=== PATIENT | female | born 1950 | race Caucasian/White ===

== ENCOUNTER 2020-01-27 07:26 | Outpatient (CLI) | payer MEDICARE, SELFPAY ==
--- NOTE | ~2020-01-27 | US_ITS ---
US renal BI 01/27/2020 07:56 Procedure: Realtime transabdominal ultrasound of the kidneys and bladder. Indication: Renal cysts. Comparison: Ultrasound dated 12/22/2017 Findings: Renal echotexture is normal bilaterally without hydronephrosis, contour deforming mass or r enal calculus. There are multiple right renal cysts, largest measuring 3 cm maximum dimension. The ri ght kidney measures 10.6 cm and left kidney measures 10.9 cm. Bladder within normal limits. Impression: 1: Right renal cysts. Otherwise, unremarkable renal ultrasound. Reviewed, dictated and finalized at location B. Impression: 1: Right renal cysts. Otherwise, unremarkable renal ultrasound.
== END 2020-01-27 07:27 | disposition home or self-care (01) ==
PROVIDERS: PCP Family Medicine; Visit Provider Nurse Practitioner Family
DX: N28.1 Cyst of kidney, acquired (principal)
CPT/HCPCS: 76775

== ENCOUNTER 2020-03-27 01:55 | Outpatient (CLI) | payer MEDICARE, SELFPAY ==
[2020-03-27 21:22] LABS: SARS-CoV-2 RNA PCR Negative
== END 2020-03-27 01:56 | disposition home or self-care (01) ==
LOC: ANHCOVIDDT 01:58
PROVIDERS: PCP Family Medicine; Visit Provider Internal Medicine Gastroenterology
DX: Z01.818 Encounter for other preprocedural examination (principal); Z20.828 Contact with and (suspected) exposure to other viral communicable diseases
CPT/HCPCS: 87635; C9803; U0003

== ENCOUNTER → 2020-03-29 13:22 | Outpatient (CLI) | payer MEDICARE, SELFPAY ==
--- NOTE | ~2020-03-29 | MM_ITS ---
EXAMINATION: MM screening [facility] BI w miguelito HISTORY: Screening mammogram TECHNIQUE: Craniocaudal and mediolateral oblique 3-D tomosynthesis images were obtained and synthetic 2-D images were generated. CAD analysis was submitted and interpreted. COMPARISON: 04/12/2015, 06/16/2012 BREAST PARENCHYMAL COMPOSITION: There are scattered areas of fibroglandular density. FINDINGS: New skin calcifications are noted in the right breast. There is no evidence of suspicious m ass, calcification, or architectural distortion to suggest malignancy in either breast. There has bee n no suspicious interval change. IMPRESSION: 1. No mammographic evidence of malignancy. 2. Recommend routine screening mammography in one year. BI-RADS Category 2: Benign finding(s). Reviewed, dictated and finalized at location A. L AND DINING ROOM CASHIER
--- NOTE | ~2020-03-29 | DEXA_ITS ---
Bone Density Report Name: Zohreh Laughlin I Age: 69 Sex: Female Ethnicity: White Date of : 1950 Indication: postmenopausal osteoporosis; parental hip fracture; height loss; Referring Provider: Jc Dahl Study: Bone densitometry was performed. Exam Date: March 29, 2020 Accession number: [id number] Bone Density: Region BMD T-score Z-score Classification AP Spine (L1-L4) 0.735 -2.8 -0.7 Osteoporosis Femoral Neck (Left) 0.506 -3.1 -1.2 Osteoporosis Total Hip (Left) 0.699 -2.0 -0.4 Osteopenia Femoral Neck (Right) 0.553 -2.7 -0.8 Osteoporosis Total Hip (Right) 0.616 -2.7 -1.1 Osteoporosis Total Hip Mean 0.658 -2.4 -0.8 Osteopenia World Health Organization criteria for BMD impression classify patients as: Normal (T-score at or above -1.0), Osteopenia (T-score between -1.0 and -2.5), or Osteoporosis (T-score at or below -2.5). 10-year Fracture Risk: FRAX not reported because: Some T-score for Spine Total or Hip Total or Femoral Neck at or below -2.5 Previous Exams: Region Exam Age BMD T-score BMD Change BMD Change Date g/cm2 vs Baseline vs Previous AP Spine(L1-L4) 03/29/2020 69 0.735 -2.8 -0.015 -0.015 02/24/2014 63 0.750 -2.7 Total Hip(Left) 03/29/2020 69 0.699 -2.0 -0.020 -0.020 02/24/2014 63 0.719 -1.8 Total Hip(Right) 03/29/2020 69 0.616 -2.7 -0.008 -0.008 02/24/2014 63 0.623 -2.6 *Denotes significance at 95% confidence level, LSC for AP Spine = 0.022 g/cm2, LSC for Total Hip = 0.027 g/cm2 Clinical Information Provided by Patient: Parent has had a hip fracture Has used the following medications: Vitamin D, Calcium Patient maximum height was 62 Menopause Age: 46 No regular weight bearing exercise Drinks caffeinated beverages Onset of menses at age 11 Number of children 2 Impression: The patient has osteoporosis, based on the Left Femoral Neck T-score. The patient has risk factors, including: parental hip fracture. No significant bone loss was observed. Discussion: INCREASED RISK OF FRACTURE. BONE DENSITY IS UNDESIRABLY LOW AT ONE OR MORE SKELETAL SITES, CONSISTENT WITH POSTMENOPAUSAL OSTEOPOROSIS. This patient's lowest T-score meets the World Health Organization's (WHO) criteria for osteoporosis at one or more sites (T-score -2.5 or below). In untreated patients, the risk of osteoporotic fracture increases approximately two-fold for each 1.0 SD decrease in T-
== END ==
PROVIDERS: PCP Family Medicine; Visit Provider Nurse Practitioner Family
DX: Z12.31 Encounter for screening mammogram for malignant neoplasm of breast (principal); Z78.0 Asymptomatic menopausal state; M81.0 Age-related osteoporosis without current pathological fracture; M85.89 Other specified disorders of bone density and structure, multiple sites
CPT/HCPCS: 77063; 77067; 77080

== ENCOUNTER 2020-03-30 00:44 | Day surgery (SDC) | payer MEDICARE, SELFPAY ==
[2020-03-24 14:12] VITALS: BMI 24.1
[2020-03-30 13:30] VITALS: BP 103/65; PULSE 92; RESP 16; TEMP 37.1; O2SAT 98
[2020-03-30] MEDS: LACTATED RINGERS 1,000 ML 150 ML IV CONT (13:33)
--- NOTE | 2020-03-30 13:51 | WPDANESEPPF ---
Anes - Initial Pre Proc Eval Procedure: Operation Date: 03/30/20 14:45 Proposed Procedures p Screening Colonoscopy - Romeo Alcantara MD Date/Time: 03/30/20 13:51 Surgeon: Romeo Alcantara MD Pre Op Diagnosis: Neoplasm Screening Patient Data Age: 69 Gender: F Height: 5 ft 0.5 in Weight: 55.4 kg Last Vital Signs Temp 98.8 F 03/30/20 13:30 Pulse 92 03/30/20 13:30 Resp 16 03/30/20 13:30 BP 103/65 03/30/20 13:30 Pulse Ox 98 03/30/20 13:30 Allergies Allergy/AdvReac Type Severity Reaction Status Date / Time cyclobenzaprine Allergy Severe Other Verified 03/30/20 13:27 codeine Allergy Intermediate Gastrointestinal Verified 03/30/20 13:27 Upset gluten Allergy Intermediate Gastrointestinal Verified 03/30/20 13:27 Upset Home Medications Medication Instructions Recorded Confirmed Type cetirizine 10 mg tablet 10 mg PO DAILY 05/09/19 03/24/20 History ferrous sulfate 325 mg (65 mg 325 mg PO TID #90 tablet 03/13/20 03/24/20 Rx iron) tablet cholecalciferol (vitamin D3) 10 mcg PO DAILY 03/24/20 03/24/20 History [Vitamin D3] Patient hx anesthesia problems: none Family hx anesthesia problems: none PMFSH Past Medical History Medical History (Updated 03/30/20 @ 13:50 by Derrick Mane MD) Iron deficiency anemia Family History Family History Sibling Hypertension Family history of diabetes mellitus in first degree relative Family history of lymphoma Mother Family history of diabetes mellitus in first degree relative Social History Social History Smoking packs per day: 1 Smoking cigarettes per day: 20.0 Years smoked: 20 Smoking pack-years: 20.00 Smoking status: Former smoker Tobacco type: cigarettes Second hand tobacco smoke exposure: No Alcohol intake: current Substance use: never Substance use type: does not use Living arrangements: alone Spiritual care concerns: No Anes - Eval Final PreProcedure Day of Procedure 03/30/20 13:51 Patient weight: normal Heart: regular rate and rhythm Lungs: clear to auscultation Airway: Mallampati scale class II Neurological: alert and oriented Last oral intake: >/= 8 hours ASA classification: II Emergent: no Anesthetic plan: proceed Anesthesia type and monitoring: general GIVS and standard monitoring Informed Consent: The patient's anesthetic plan and its attendant risks and benefits were discussed with the patient/family/POA. Questions were solicited and answers provided to the satisfaction of the patient/family/POA.
--- NOTE | 2020-03-30 13:55 | PM.HPGS ---
History of Present Illness History of Present Illness Consent: Risks, benefits, and alternatives have been discussed and questions answered. Patient agrees to proceed with procedure. Chief complaint: Neoplasm Screening Narrative: Zohreh Laughlin is a 69 year old female here with anemia and also + cologuard, last colonoscopy more than 10 years ago. Review of Systems Constitutional: Constitutional: Denies headache(s) and Denies weakness Eyes: Eyes: Denies blurry vision ENT: Reports Normal hearing present, Denies headache(s) and Denies neck pain Cardiovascular: Cardiovascular: Denies chest pain and Denies dyspnea Respiratory: Respiratory: Denies dyspnea Gastrointestinal: Gastrointestinal: Reports no additional gastrointestinal complaints Genitourinary: Genitourinary: Denies dysuria Musculoskeletal: Musculoskeletal: Denies neck pain Integumentary/Breasts: Skin/Breast: Denies dry skin Neurologic: Reports Normal hearing present, Denies headache(s) and Denies weakness Psychiatric: Psychiatric: Denies anxiety Endocrine: Endocrine: Denies change in body appearance Hematologic/Lymphatic: Hematologic/Lymphatic: Denies easy bleeding Allergic/Immunologic: Allergic/Immunologic: Denies urticaria PMFSH Past Medical History Medical History (Updated 03/30/20 @ 13:56 by Romeo Alcantara MD) Celiac disease Iron deficiency anemia Positive colorectal cancer screening using Cologuard test Family History Family History Sibling Hypertension Family history of diabetes mellitus in first degree relative Family history of lymphoma Mother Family history of diabetes mellitus in first degree relative Social History Social History Smoking packs per day: 1 Smoking cigarettes per day: 20.0 Years smoked: 20 Smoking pack-years: 20.00 Smoking status: Former smoker Tobacco type: cigarettes Second hand tobacco smoke exposure: No Alcohol intake: current Substance use: never Substance use type: does not use Living arrangements: alone Spiritual care concerns: No Meds Home Medications and Allergies Home Medications Medication Instructions Recorded Confirmed Type cetirizine 10 mg tablet 10 mg PO DAILY 05/09/19 03/24/20 History ferrous sulfate 325 mg (65 mg 325 mg PO TID #90 tablet 03/13/20 03/24/20 Rx iron) tablet cholecalciferol (vitamin D3) 10 mcg PO DAILY 03/24/20 03/24/20 History [Vitamin D3] Allergies Allergy/AdvReac Type Severity Reaction Status Date / Time cyclobenzaprine Allergy Severe Other Verified 03/30/20 13:27 codeine Allergy Intermediate Gastrointestinal Verified 03/30/20 13:27 Upset gluten Allergy Intermediate Gastrointestinal Verified 03/30/20 13:27 Upset Vital Signs Vital Signs - 24 hr 03/30/20 13:30 Temperature 98.8 F Pulse Rate 92 Respiratory Rate 16 Blood Pressure 103/65 Pulse Oximetry 98 Exam Const: General: comfortable and no acute distress HENMT: General nose exam: Normal nares present Eyes: General: appearance normal, both eyes and all related structures Neck: Neck: no JVD Resp: Auscultation: clear to auscultation bilaterally Cardio: Rate: regular rate Rhythm: regular rhythm GI: Inspection: non-distended GI Palp: Yes Soft to palpation Skin: General skin exam: normal color Neuro: General: gait normal Speech: normal speech Extrem: General: normal to inspection Psych: Mental Status: mental status grossly normal Assessment and Plan Assessment and plan (1) Iron deficiency anemia: Code(s): D50.9 - Iron deficiency anemia, unspecified Status: Acute (2) Positive colorectal cancer screening using Cologuard test: Code(s): R19.5 - Other fecal abnormalities Status: Acute Assessment and Plan: proceed with colonoscopy (3) Celiac disease: Code(s): K90.0 - Celiac disease
[2020-03-30 14:18] VITALS: BP 84/46; PULSE 81; RESP 16; O2SAT 99
[2020-03-30 14:28] VITALS: BP 88/52; PULSE 84; RESP 18; O2SAT 99
[2020-03-30 14:38] VITALS: BP 109/65; PULSE 77; RESP 21; O2SAT 97
[2020-03-30 14:48] VITALS: BP 115/71; PULSE 75; RESP 17; O2SAT 100
== END 2020-03-30 14:52 | disposition home or self-care (01) ==
PROVIDERS: PCP Family Medicine; Visit Provider Internal Medicine Gastroenterology
PROC: 0DJD8ZZ Inspection of Lower Intestinal Tract, Via Natural or Artificial Opening Endoscopic (ICD-10-PCS; CPT 45378; principal; 2020-03-30 14:45)
DX: D50.9 Iron deficiency anemia, unspecified (principal); R19.5 Other fecal abnormalities; D12.2 Benign neoplasm of ascending colon; D12.4 Benign neoplasm of descending colon; D12.8 Benign neoplasm of rectum; K57.30 Diverticulosis of large intestine without perforation or abscess without bleeding; K90.0 Celiac disease; Z87.891 Personal history of nicotine dependence
CPT/HCPCS: 45385; 88305; J2704; J7120

== ENCOUNTER 2020-05-26 16:37 | Outpatient (CLI) | payer MEDICARE, SELFPAY ==
--- NOTE | ~2020-05-26 | US_ITS ---
EXAMINATION: US abdomen limited DATE: 05/26/2020 17:21 INDICATION: Abdominal pain TECHNIQUE: Multiple grayscale and Doppler ultrasound images of the abdomen were obtained. COMPARISON: None FINDINGS: Pancreas is normal. Liver has normal echogenicity and contour, with a smooth surface. No liver lesion identified. No intrahepatic biliary duct dilation suspected. Portal venous flow was seen in the hepa topetal, normal direction and has normal Doppler waveform. Multiple small echogenic and shadowing gal lstones in the dependent aspect of the otherwise normal-appearing gallbladder which is not dilated wi th no evident wall thickening. Common bile duct measures 4 mm diameter which is normal. Sonographic M urphy sign was reported as negative by the home health outreach coordinator. The right kidney measures 11.3 x 4.1 x 4.3 cm and demonstrates normal echogenicity. 2.7 cm anechoic cyst at the upper pole of the right kidney. No hydronephrosis. IMPRESSION: 1. Cholelithiasis without findings of acute cholecystitis. Reviewed, dictated and finalized at location A. INSTRUCTOR
--- NOTE | 2020-05-26 16:44 | ECG_ITS ---
Measurements Intervals [place] Rate: 65 P: 62 WV: 164 QRS: 40 QRSD: 77 T: 49 QT: 383 QTc: 398 Interpretive Statements SINUS RHYTHM RSR' IN V1 OR V2, PROBABLY NORMAL VARIANT BASELINE ARTIFACT- V1 NORMAL ECG Electronically Signed On 05-26-2020 19:06:59 ANALYTICAL TECHNICIAN by Jacobo Rivero D.O.
[2020-05-26 18:00] LABS: Basophils Percent Auto 0.6 % (0.2-1.2); Eosinophils Absolute Auto 0.1 K/mm3 (0-0.3); Eosinophils Percent Auto 2.8 % (0-4.4); Hematocrit 39.2 % (37.0-47.0); Hemoglobin 12.6 g/dL (12.0-15.0); Immature Granulocyte Absolute 0.01 K/mm3 (0.00-0.031); Immature Granulocyte Percent A 0.2 % (0-0.5); Lymphocytes Absolute Auto 1.95 K/mm3 (0.9-3.2); Lymphocytes Percent Auto 39.5 % (18.3-44.2); Mean Corpuscular HGB Conc 32.1 g/dl (32-36); Mean Corpuscular Hemoglobin 26.8 pg (26-34); Mean Corpuscular Volume 83.4 fl (80-100); Mean Platelet Volume 9.7 fl (7.4-10.4); Monocytes Absolute Auto 0.6 K/mm3 (0.1-0.6); Monocytes Percent Auto 12.8 % (2.6-8.5); Neutrophils Absolute Auto 2.2 K/mm3 (1.3-6.7); Neutrophils Percent Auto 44.1 % (45.5-73.1); Platelet Count Result 350 k/mm3 (150-375); Red Cell Distribution Width 21.8 % (11.5-14.5); White Blood Count 4.9 K/mm3 (4.5-10.0)
[2020-05-26 18:16] LABS: Alanine Aminotransferase 27 U/L (4-35); Albumin Level 4.4 g/dL (3.5-5.1); Alkaline Phosphatase 83 U/L (38-126); Amylase 68 U/L (30-110); Anion Gap 3 mmol/L (8-16); Aspartate Amino Transferase 32 U/L (14-36); Bilirubin,Total 0.5 mg/dL (0.2-1.3); Blood Urea Nitrogen 11 mg/dL (7-17); Calcium 9.4 mg/dL (8.4-10.2); Carbon Dioxide 32 mmol/L (22-30); Chloride 104 mmol/L (98-107); Estimated Glomerular Filt Rate > 60; Glucose 100 mg/dL (65-105); Lipase 80 U/L (23-300); Potassium 3.7 mmol/L (3.4-5.0); Sodium 139 mmol/L (137-145)
== END 2020-05-26 16:38 | disposition home or self-care (01) ==
LOC: ANHIMG 16:39
PROVIDERS: PCP Family Medicine; Visit Provider Nurse Practitioner Family
DX: K80.10 Calculus of gallbladder with chronic cholecystitis without obstruction (principal); R10.13 Epigastric pain; H69.80 Other specified disorders of Eustachian tube, unspecified ear
CPT/HCPCS: 36415; 76705; 80053; 82150; 83690; 85025; 93005

== ENCOUNTER 2020-06-01 07:09 | Outpatient (CLI) | payer MEDICARE, SELFPAY ==
--- NOTE | ~2020-06-01 | NM_ITS ---
EXAMINATION: NM hepatobiliary w pharm DATE: 06/01/2020 11:20 INDICATION: Cholelithiasis COMPARISON: None. TECHNIQUE: 5.2 mCi Tc-99m mebrofenin (Choletec) was administered intravenously. Scintigraphic images of the abdomen were obtained for one hour. 0.1 mcg sincalide (Kinevac) was administered by slow intr avenous infusion, and imaging was continued for 30 minutes. Gallbladder ejection fraction was calcula christiano by the technologist. FINDINGS: There is normal clearance of radiotracer from the blood pool. There is homogeneous tracer uptake by t he liver. Activity progresses to the gallbladder and bowel. The gallbladder ejection fraction (GBEF) is 6% (normal 10-90%, but most patient with gallbladder dysfunction have GBEF < 35% which does overl ap with the normal range). IMPRESSION: 1. Gallbladder ejection fraction of 6% is below the limits of normal consistent with gallbladder dys function or chronic cholecystitis in the appropriate clinical setting. Reviewed, dictated and finalized at location A. R COMMISSIONER IMPRESSION: 1. Gallbladder ejection fraction of 6% is below the limits of normal consisten t with gallbladder dysfunction or chronic cholecystitis in the appropriate clin ical setting.
== END 2020-06-01 07:10 | disposition home or self-care (01) ==
PROVIDERS: Family Provider Family Medicine; PCP Family Medicine; Visit Provider Nurse Practitioner Family
DX: K80.20 Calculus of gallbladder without cholecystitis without obstruction (principal)
CPT/HCPCS: 78227; A9537; J2805

== ENCOUNTER → 2020-06-02 12:37 | Outpatient (CLI) | payer MEDICARE, SELFPAY ==
[2020-06-02 17:38] LABS: SARS-CoV-2 RNA PCR Negative
== END ==
PROVIDERS: Family Provider Family Medicine; PCP Family Medicine; Visit Provider Surgery
DX: Z01.812 Encounter for preprocedural laboratory examination (principal); Z20.822 Contact with and (suspected) exposure to COVID-19
CPT/HCPCS: C9803; U0003; U0005

== ENCOUNTER 2020-06-05 01:40 | Day surgery (SDC) | payer MEDICARE, SELFPAY ==
[2020-06-02 11:13] VITALS: BMI 25.0
[2020-06-05] VITALS (8 sets, daily range): BP systolic 111–138; BP diastolic 60–73; PULSE 74–108; RESP 14–20; TEMP 36.5–36.6; O2SAT 96–100
[2020-06-05] MEDS: LACTATED RINGERS 1,000 ML 30 ML IV CONT ×2 (11:34→13:17)
[2020-06-05] MEDS: ACETAMINOPHEN 500 MG TABLET 1000 MG PO (11:35)
[2020-06-05] MEDS: KETOROLAC 15 MG/ML VIAL (*BKC) IV PUSH (11:35)
--- NOTE | 2020-06-05 11:44 | WPDANESEPPF ---
Anes - Initial Pre Proc Eval Procedure: Operation Date: 06/05/20 13:00 Proposed Procedures p Laparoscopic Cholecystectomy, Possible Open - Reddy Ayala DO Date/Time: 06/05/20 11:44 Surgeon: Reddy Ayala DO Pre Op Diagnosis: Symptomatic Cholelithiasis Patient Data Age: 70 Gender: F Height: 5 ft Weight: 55.9 kg Last Vital Signs Temp 97.7 F 06/05/20 11:05 Pulse 74 06/05/20 11:05 Resp 16 06/05/20 11:05 BP 138/60 06/05/20 11:05 Pulse Ox 100 06/05/20 11:05 Allergies Allergy/AdvReac Type Severity Reaction Status Date / Time cyclobenzaprine Allergy Severe Other Verified 06/05/20 10:55 gluten Allergy Intermediate Gastrointestinal Verified 06/05/20 10:55 Upset codeine AdvReac Intermediate STOMACH Verified 06/05/20 10:55 PAIN/CRAMPING Home Medications Medication Instructions Recorded Confirmed Type cetirizine 10 mg tablet 10 mg PO DAILY 05/09/19 06/05/20 History cholecalciferol (vitamin D3) 10 mcg PO DAILY 03/24/20 06/05/20 History [Vitamin D3] Patient hx anesthesia problems: none Family hx anesthesia problems: none PMFSH Past Medical History Medical History Acute right hip pain Acute right-sided low back pain with left-sided sciatica Age-related osteoporosis without current pathological fracture BMI 25.0-25.9,adult Body mass index [BMI] 28.0-28.9, adult (08/05/16) Celiac disease Closed fracture dislocation of finger with routine healing Closed nondisplaced fracture of middle phalanx of left index finger Cyst of right kidney Dietary counseling and surveillance (01/28/18) Dislocation of metacarpophalangeal joint of left middle finger, initial encounter Elevated glucose Head injury without fracture of skull Iron deficiency anemia Measles, mumps, rubella (MMR) vaccination status unknown Meniere's disease, bilateral Mixed hyperlipidemia Needs flu shot Non-compliant behavior Other spondylosis with radiculopathy, lumbar region Pain in finger of left hand Pain in left hand Positive colorectal cancer screening using Cologuard test Routine physical examination Screening for breast cancer Screening for colon cancer Vitamin D deficiency, unspecified Surgical History Surgical History History of ear surgery shunt, right ear, [facility] Family History Family History Sibling Hypertension Family history of diabetes mellitus in first degree relative Family history of lymphoma Mother Family history of diabetes mellitus in first degree relative Father No problems noted. Social History Social History Smoking packs per day: 1 Smoking cigarettes per day: 20.0 Years smoked: 23 Smoking pack-years: 23.00 Smoking status: Former smoker Tobacco type: cigarettes Second hand tobacco smoke exposure: No Smoking end date: 05/12/94 Alcohol intake: never Substance use: never Substance use type: does not use Living arrangements: alone Additional occupation/education comments: teacher Gender identity (if verbalized by the patient): Female Spiritual care concerns: No Anes - Eval Final PreProcedure Day of Procedure 06/05/20 11:44 Patient weight: normal Heart: regular rate and rhythm Lungs: clear to auscultation Airway: Mallampati scale class II Neurological: alert and oriented Last oral intake: >/= 8 hours ASA classification: II Emergent: no Anesthetic plan: proceed Anesthesia type and monitoring: general ETT and standard monitoring Informed Consent: The patient's anesthetic plan and its attendant risks and benefits were discussed with the patient/family/POA. Questions were solicited and answers provided to the satisfaction of the patient/family/POA.
--- NOTE | 2020-06-05 12:04 | WPDHPUPDATE1 ---
History and Physical Update Update Date/Time: 06/05/20 12:04 History and Physical has been reviewed, including an updated exam of the patient. There are NO changes in the patient's condition. Risks, benefits, and alternatives have been discussed and questions answered. Patient agrees to proceed with procedure.
[2020-06-05] MEDS: ceFAZolin 2 GM/D5W 50 ML 2 GM/50 ML BAG IVPB (12:20)
[2020-06-05] MEDS: BUPIVACAINE/EPINEPHRINE 0.5% 10 ML VIAL 30 ML INFILTRATE (12:49)
--- NOTE | 2020-06-05 13:19 | PM.PROC ---
Procedure Note - Detailed Date of procedure: 06/05/20 Pre-op diagnosis: Symptomatic Cholelithiasis Post-op diagnosis: same Procedure performed: Laparoscopic Cholecystectomy Description of procedure: Procedure as well as risks, benefits, and alternatives were discussed with patient. Written consent was obtained and placed in chart prior to procedure. The patient was brought back to surgical suite. Patient was placed in supine position on operating table. Time-out was done to confirm patient and procedure. Patient was then intubated by the anesthesia department. Abdomen was prepped and draped in sterile fashion using chlorhexidine prep. 0.5% bupivacaine with epinephrine was infiltrated at each site of incision. An 11 millimeter vertical incision was made at the inferior portion of the umbilicus using a 15 blade scalpel. Blunt dissection was carried down to the linea alba. The linea alba was then incised using a 15 blade scalpel. The peritoneum was then bluntly entered. An 11 millimeter trocar was inserted and cabon dioxied insuflation was used to create a pneumoperitoneum. The camera was inserted and the abdomen was inspected. The patient was placed in reverse Trendelenberg position and rotated slightly to the left. A 5 millimeter incision was made in the epigastric region, and a 5 millimeter trocar was inserted under direct visualization. Two 5 millimeter incisions were made in the right upper quadrant, and two 5 millimeter trocars were inserted under direct visualization. The gallbladder was identified and grasped at the fundus and retracted superiorly. It was then grasped at the infundibulum retracted laterally. Careful dissection around the neck of the gallbladder was performed using blunt dissection with a [place] grasper and hook electrocautery. The cystic duct was identified, and a window was created behind it. The cystic artery was also identified and a window was created behind it. The critical view of safety was identified, visualizing the cystic duct running directly into the neck of the gallbladder, and the cystic artery running directly into the wall of the gallbladder. A 5 millimeter clip drywall finisher was then used to place 2 clips proximally and 1 clip distally on both the cystic duct and cystic artery. They were then both transected using endoscopic scissors. Once safely away from the marielos hepatitis, the gallbladder was dissected free from the liver bed using hook electrocautery. Hemostasis was achieved along the way. The gallbladder was removed completely and then removed through the umbilical port. The liver bed was then inspected. Hemostasis appeared adequate, and our clips appeared secure. The area was gently irrigated with sterile saline. No other abnormalities were seen. The patient was flattened out in bed, and 1 final inspection was made around the abdominal cavity. The ports were then removed under direct visualization, the camera was removed, and the pneumoperitoneum was released. The fascia of the umbilical incision was approximated using an 0 Vicryl [id number] suture. The skin of the incisions was approximated using 4-0 Monocryl subcuticular sutures. Exofin glue was applied on top. The patient was then awakened from anesthesia, extubated, and transferred to recovery. Anesthesia: GETA and local (0.5% bupivicaine with epinephrine) Surgeon: Reddy Ayala DO Estimated blood loss (mL): 5 Pathology: yes Complications: No immediate complications Condition: stable Disposition: same day Findings: This is a 70-year-old woman who presented with intermittent episodes of epigastric abdominal pain for the past month. She states that she has had several episodes since this 1st started. She underwent a gallbladder ultrasound which showed evidence of cholelithiasis but no evidence of acute cholecystitis. She also had a gallbladder HIDA scan which showed a gallbladder ejection fraction of 6%. Discussions were made with the
== END 2020-06-05 15:02 | disposition home or self-care (01) ==
PROVIDERS: Family Provider Family Medicine; PCP Family Medicine; Visit Provider Surgery
PROC: 0FT44ZZ Resection of Gallbladder, Percutaneous Endoscopic Approach (ICD-10-PCS; CPT 47562; principal; 2020-06-05 13:00)
DX: K80.10 Calculus of gallbladder with chronic cholecystitis without obstruction (principal); M81.0 Age-related osteoporosis without current pathological fracture; K90.0 Celiac disease; D50.9 Iron deficiency anemia, unspecified; H81.02 Meniere's disease, left ear; E78.2 Mixed hyperlipidemia; E55.9 Vitamin D deficiency, unspecified; M47.26 Other spondylosis with radiculopathy, lumbar region; Z87.891 Personal history of nicotine dependence
CPT/HCPCS: 47562; 36415; 86850; 86900; 86901; 88304; A9270; J0330; J0690; J1100; J1885; J2250; J2405; J2704; J3010; J7030; J7120

== ENCOUNTER 2020-12-12 07:00 | Outpatient (CLI) | payer MEDICARE, SELFPAY ==
--- NOTE | ~2020-12-12 | XR_ITS ---
XR chest 2V DATE: 12/12/2020 07:19 INDICATION: Increasing shortness of breath and fatigue. Past history of smoking. TECHNIQUE: PA and lateral views COMPARISON: None FINDINGS: Heart size is normal. Aortic arch calcification and calcification of the descending thoraci c and abdominal aorta. Status post cholecystectomy. No hilar or mediastinal enlargement. Bilateral hyperinflation, suggesting COPD. No pulmonary infiltrate or consolidation, pleural effusion or pulmonary vascular congestion or pneumo thorax. Mild levoscoliosis of the thoracic spine. Diffuse osteopenia. IMPRESSION: Bilateral hyperinflation suggesting COPD No active cardiopulmonary disease Reviewed, dictated and finalized at location B.
== END 2020-12-12 07:01 | disposition home or self-care (01) ==
PROVIDERS: PCP Family Medicine; Visit Provider Nurse Practitioner Family
DX: R25.2 Cramp and spasm (principal); R53.83 Other fatigue; R06.02 Shortness of breath; R91.8 Other nonspecific abnormal finding of lung field
CPT/HCPCS: 71046

== ENCOUNTER 2020-12-13 11:10 | Inpatient (IN) | payer MEDICARE, SELFPAY ==
[2020-12-13] VITALS (16 sets, daily range): BP systolic 111–146; BP diastolic 59–79; PULSE 74–92; RESP 13–21; TEMP 35.4–37.1; O2SAT 98–100
--- NOTE | ~2020-12-13 | XR_ITS ---
EXAMINATION: XR sm bowel follow through DATE: 12/15/2020 16:59 INDICATION: Iron deficiency anemia. Celiac disease. TECHNIQUE: Oral contrast was administered, and a time course of radiographs of the abdomen was obtain ed. Fluoroscopy of the small bowel was performed. Fluoroscopy exposure time was 0.3 minutes. The tota l number of images was 11. COMPARISON: None. FINDINGS: There are no dilated loops of bowel. There is no mass or stricture. Transit time from the stomach to proximal colon was approximately 30 minutes. The terminal ileum is not well visualized. IMPRESSION: 1. No etiology for anemia. Reviewed, dictated and finalized at location A. IMPRESSION: 1. No etiology for anemia.
[2020-12-13 11:44] LABS: Basophils Percent Auto 0.4 % (0.2-1.2); Eosinophils Absolute Auto 0.1 K/mm3 (0-0.3); Eosinophils Percent Auto 2.1 % (0-4.4); Immature Granulocyte Absolute 0.02 K/mm3 (0.00-0.031); Immature Granulocyte Percent A 0.4 % (0-0.5); Lymphocytes Absolute Auto 1.11 K/mm3 (0.9-3.2); Lymphocytes Percent Auto 23.4 % (18.3-44.2); Mean Corpuscular HGB Conc 26.8 g/dl (32-36); Mean Corpuscular Hemoglobin 18.2 pg (26-34); Mean Corpuscular Volume 67.8 fl (80-100); Mean Platelet Volume 8.8 fl (7.4-10.4); Monocytes Absolute Auto 0.5 K/mm3 (0.1-0.6); Monocytes Percent Auto 10.8 % (2.6-8.5); Neutrophils Percent Auto 62.9 % (45.5-73.1); Platelet Count Result 474 k/mm3 (150-375); Red Blood Count 2.86 M/mm3 (4.2-5.4); Red Cell Distribution Width 18.8 % (11.5-14.5); White Blood Count 4.7 K/mm3 (4.5-10.0)
[2020-12-13 11:53] LABS: Alanine Aminotransferase 13 U/L (4-35); Albumin Level 4.2 g/dL (3.5-5.1); Alkaline Phosphatase 80 U/L (38-126); Anion Gap 7 mmol/L (8-16); Aspartate Amino Transferase 21 U/L (14-36); Bilirubin,Total 0.4 mg/dL (0.2-1.3); Blood Urea Nitrogen 7 mg/dL (7-17); Calcium 8.9 mg/dL (8.4-10.2); Carbon Dioxide 23 mmol/L (22-30); Chloride 103 mmol/L (98-107); Estimated Glomerular Filt Rate > 60; Glucose 110 mg/dL (65-110); Potassium 3.9 mmol/L (3.4-5.0); Sodium 133 mmol/L (137-145)
[2020-12-13 11:55] LABS: Partial Thromboplastin Time 27.6 SECONDS (22.3-36.8)
[2020-12-13 12:01] LABS: Hemoglobin 5.2 g/dL (12.0-15.0)
[2020-12-13 12:02] LABS: Hematocrit 19.4 % (37.0-47.0)
--- NOTE | 2020-12-13 12:16 | ECG_ITS ---
Measurements Intervals [place] Rate: 80 P: 59 NM: 164 QRS: 28 QRSD: 72 T: 46 QT: 371 QTc: 428 Interpretive Statements SINUS RHYTHM RSR' IN V1 OR V2, PROBABLY NORMAL VARIANT BASELINE ARTIFACT- I, II, III, AVR, AVF, V3-V6 BORDERLINE ECG Electronically Signed On 12-13-2020 12:56:17 CDT by Jacobo Rivero D.O.
--- NOTE | 2020-12-13 12:40 | ED.GENADULT ---
HPI - General Adult General Chief complaint: Recheck/Abnormal Lab/Rx Stated complaint: need transfusion Time Seen by Provider: 12/13/20 12:08 History of Present Illness HPI narrative: Patient referred from primary care physician for low blood levels. Patient reports she has been feeling weak over the past couple days with increased shortness of breath with physical activity. She had routine blood drawn yesterday the results returned today and she had a low H&H and is referred to the ER for further evaluation. Patient reports history of anemia of unclear etiology. Reports he has a very restricted diet due to gluten allergies she denies any melena or blood in stool. Denies any fevers, cough, focal areas of pain Related Data Home Medications Medication Instructions Recorded Confirmed cyclosporine [Restasis] 1 drp EACH EYE BID 12/13/20 12/13/20 Allergies Allergy/AdvReac Type Severity Reaction Status Date / Time cyclobenzaprine Allergy Severe Other Verified 12/13/20 12:16 gluten Allergy Intermediate Gastrointestinal Verified 12/13/20 12:16 Upset codeine AdvReac Intermediate STOMACH Verified 12/13/20 12:16 PAIN/CRAMPING Review of Systems Review of Systems: CONSTITUTIONAL: Denies fever, chills, or sweats. EYES: Denies visual changes, redness, or discharge. ENT: Denies rhinorrhea, congestion, sore throat, or otalgia. CARDIOVASCULAR: Denies chest pain, palpitations, or edema. RESPIRATORY: Denies cough or dyspnea. GASTROINTESTINAL: Denies abdominal pain, nausea, vomiting, or diarrhea. GENITOURINARY: Denies dysuria or hematuria. SKIN: Denies rash or itching. MUSCULOSKELETAL: Denies back pain, joint pain, or myalgia. NEUROLOGIC: Denies headache, numbness, dizziness, or focal weakness. PSYCHIATRIC: Denies anxiety or depression. All systems reviewed & are unremarkable except as noted in HPI and below [facility] Past Medical History Medical History (Updated 12/13/20 @ 18:03 by Mindy Riggins DO) Acute right hip pain Acute right-sided low back pain with left-sided sciatica Adenomatous colon polyp (~03/2020) Age-related osteoporosis without current pathological fracture BMI 25.0-25.9,adult Celiac disease Cyst of right kidney Iron deficiency anemia Meniere's disease, bilateral Mixed hyperlipidemia Other spondylosis with radiculopathy, lumbar region Vitamin D deficiency, unspecified Surgical History Surgical History (Updated 12/13/20 @ 18:03 by Mindy Riggins DO) History of colonoscopy with polypectomy (~03/2020) History of ear surgery shunt, right ear, 1997 [facility] laparoscopic cholecystectomy 06/05/20 Family History Family History Sibling Hypertension Family history of diabetes mellitus in first degree relative Family history of lymphoma Mother Family history of diabetes mellitus in first degree relative Father No problems noted. Social History Social History Smoking packs per day: 1 Smoking cigarettes per day: 20.0 Years smoked: 23 Smoking pack-years: 23.00 Tobacco type: cigarettes Second hand tobacco smoke exposure: No Smoking end date: 05/12/94 Alcohol intake: never Substance use: never Substance use type: does not use Additional occupation/education comments: teacher Gender identity (if verbalized by the patient): Female Spiritual care concerns: No Exam Narrative: GENERAL: Well-appearing, well-nourished, and in no acute distress. HEAD: Normocephalic, atraumatic. EYES: PERRLA and EOMI. ENT: Nares clear, no rhinorrhea or epistaxis. Mucous membranes moist. NECK: Supple. No masses. No JVD CHEST: Clear to auscultation. No respiratory distress. No wheezes rales or rhonchi HEART: Regular rate and rhythm. No murmur heard. Normal peripheral pulses. ABDOMEN: Soft, nontender, nondistended, normal active bowel sounds. RECT
[2020-12-13 12:53] LABS: Troponin I < 0.012 ng/mL (0.000-0.034)
[2020-12-13 13:04] LABS: Iron 11 ug/dL (37-170); Lactate Dehydrogenase 391 U/L (313-618)
[2020-12-13 13:12] LABS: Transferrin 356 mg/dL (206-381)
[2020-12-13 13:15] LABS: Percent Iron Saturation 2 % (20-50)
[2020-12-13 13:40] LABS: Ferritin 3.23 ng/mL (11.1-264)
[2020-12-13] MEDS: TUBING, BLOOD SET 1 EACH XX (14:52)
[2020-12-13] MEDS: SODIUM CHLORIDE 0.9% IV 1,000 ML 125 ML IV CONT (14:52)
--- NOTE | 2020-12-13 16:10 | ADMGEN ---
This patient, Zohreh James, was admitted to Medical Room 340-01. Patient/family oriented to hospital policies and general routines including ID bracelet, bed and alarms, visiting hours, pain management, procedures, bathroom and other care routines, personal items, smoking policy, room service/diet, and visiting hours. Information on how to activate the Rapid Response Team has been discussed. Patient/Family are encouraged to report perceived risks to care and to ask questions if they do not understand what they are told or what they should do.
--- NOTE | 2020-12-13 16:43 | WPDGICN ---
Assessment and Plan Assessment and plan (1) Acute blood loss anemia: Code(s): D62 - Acute posthemorrhagic anemia Status: Acute Assessment and Plan: denies overt gib, colonoscopy few months ago without signs of bleeding EGD to assess if ulcers, gastritis. Also will get duodenal bx to check disease activity from celiac. If work up negative then she will need capsule endoscopy as outpatient (2) Celiac disease: Code(s): K90.0 - Celiac disease Status: Acute Assessment and Plan: she says that has been on gluten free diet (3) Shortness of breath: Code(s): R06.02 - Shortness of breath Status: Acute Assessment and Plan: from symptomatic anemia (4) Leg cramping: Code(s): R25.2 - Cramp and spasm Status: Acute (5) Adenomatous colon polyp: Code(s): D12.6 - Benign neoplasm of colon, unspecified Status: Acute Assessment and Plan: colonoscopy last year, due 2024 GI Consult Note Consult date/time: 12/13/20 16:43 Reason for consult: ELEN, celiac disease HPI: Zohreh James is a 70 year old female who I met her last year when she presented for outpatient colonoscopy because anemia and positive cologuard. Colonoscopy with TA polyps, mild diverticulosis but no findings to explain anemia (hb ~ 10). She has not had a recent EGD and was diagnosed with celiac disease [place] [address] Becker after she had diarrhea. She says that is on gluten free diet and she tries to be careful about it, lately make some more changes in her diet after she went to see a doctor because vertigo. Last several days with dyspnea on exertion and more fatigue, finally she went to see her PCP couple days ago and hgb 5, she was told to come to ER and admitted. She never had GIB, denies previous blood transfusion. She does not take meds in regular basis (only eye drops), only tylenol or advil no more often than once a month. She is getting blood now. Review of Systems Constitutional: Constitutional: Reports fatigue Eyes: Eyes: Denies blurry vision ENT: Comments: chronic hearing loss Cardiovascular: Cardiovascular: Denies leg edema Respiratory: Respiratory: Reports dyspnea on exertion Gastrointestinal: Gastrointestinal: Denies abdominal pain, Denies nausea and Denies vomiting Genitourinary: Genitourinary: Denies hematuria Musculoskeletal: Musculoskeletal: Denies neck pain Integumentary/Breasts: Skin/Breast: Denies dry skin Neurologic: Denies headache(s) Psychiatric: Psychiatric: Denies anxiety [facility] Past Medical History Medical History (Updated 12/13/20 @ 16:50 by Romeo Alcantara MD) Acute blood loss anemia Acute right hip pain Acute right-sided low back pain with left-sided sciatica Adenomatous colon polyp Age-related osteoporosis without current pathological fracture BMI 24.0-24.9, adult BMI 25.0-25.9,adult Body mass index [BMI] 28.0-28.9, adult (08/05/16) Celiac disease Closed fracture dislocation of finger with routine healing Closed nondisplaced fracture of middle phalanx of left index finger Cyst of right kidney Dietary counseling and surveillance (01/28/18) Dislocation of metacarpophalangeal joint of left middle finger, initial encounter Elevated glucose Head injury without fracture of skull Iron deficiency anemia Measles, mumps, rubella (MMR) vaccination status unknown Meniere's disease, bilateral Mixed hyperlipidemia Needs flu shot Non-compliant behavior Other spondylosis with radiculopathy, lumbar region Pain in finger of left hand Pain in left hand Positive colorectal cancer screening using Cologuard test Routine physical examination Screening for breast cancer Screening for colon cancer Vitamin D deficiency, unspecified Surgical History Surgical History History of ear surgery shunt, right ear, 1997 [facility] laparoscopic cholecystectomy 06/05/20 Family History Family His
--- NOTE | 2020-12-13 17:58 | PM.IMHP ---
H&P: HPI History of Present Illness Date/Time: 12/13/20 17:58 Chief Complaint: ?I need a transfusion? Narrative: 70-year-old female with a past medical history of celiac disease, prior anemia, and recent colonoscopy with polypectomy who presented to the ER after outpatient labs demonstrated low hemoglobin. The patient reports that for the last couple of weeks that she had noticed that she felt more lazy. She does did not have the energy to do her usual activities. Over the last week she has noticed dyspnea on exertion. She at feels as if she cannot catch a deep breath. She denies any chest pain, palpitations or orthopnea. She has not received lower extremity swelling. She went to her primary care physician for the symptoms and had outpatient labs performed which demonstrated significant anemia. The patient's hemoglobin back in May of 2020 was 12.6 but she has had a history of anemia in the past with hemoglobins ranging between 9 and 10. She has never needed blood transfusion. She had an outpatient colonoscopy March 2020 due to a positive Cologuard that was relatively unremarkable. His she denies any gross GI bleeding. In the ER her Hemoccult was weakly positive for occult blood. His she has noticed over the last couple of weeks some epigastric discomfort that is burning in nature. She does not have a history of gastritis or ulcers that she knows of. She will take ibuprofen on a rare occasion but mostly 6 the Tylenol for pain relief. She has not had any loss of appetite, nausea or vomiting. She reports that her weight is been stable. She does have a history of celiac disease and is on a restricted diet. She also had recent dental work this year which is made it difficult for her to eat leafy green vegetables. She does not eat much red meat. She does not take any iron supplements. Review of Systems Review of Systems: 12 systems were reviewed with pertinent positives and negatives per HPI. Except as documented in the HPI, all other systems were reviewed and are negative. [facility] Past Medical History Medical History (Updated 12/14/20 @ 00:43 by Mindy Riggins DO) Acute right hip pain Acute right-sided low back pain with left-sided sciatica Adenomatous colon polyp (~03/2020) Age-related osteoporosis without current pathological fracture BMI 25.0-25.9,adult Celiac disease Cyst of right kidney Iron deficiency anemia Meniere's disease, bilateral Mixed hyperlipidemia Other spondylosis with radiculopathy, lumbar region Profound hearing loss of both ears Vitamin D deficiency, unspecified Surgical History Surgical History (Updated 12/14/20 @ 00:43 by Mindy Riggins DO) History of colonoscopy with polypectomy (~03/2020) History of dilatation and curettage History of ear surgery shunt, right ear, 1997 [facility] History of tonsillectomy and adenoidectomy History of tubal ligation Hx laparoscopic cholecystectomy (06/05/20) Family History Family History (Updated 12/14/20 @ 00:44 by Mindy Riggins DO) Sibling Hypertension Diabetes mellitus Lymphoma COPD (chronic obstructive pulmonary disease) Mother , at 101 years old Diabetes mellitus Father , at age 57 Malignant neoplasm of prostate Social History Social History (Updated 12/14/20 @ 00:46 by Mindy Riggins DO) Smoking packs per day: 1 Smoking cigarettes per day: 20.0 Years smoked: 23 Smoking pack-years: 23.00 Tobacco type: cigarettes Second hand tobacco smoke exposure: No Smoking end date: 05/12/94 Alcohol intake: never Substance use: never Additional living arrangements comments: She lives at home alone. She reports that she is happily . She has 1 soft and 1 daughter. Her son lives locally. She is independent in activities of daily living. Occupation/Education: retired Additional occupation/education comments: teacher Gender identity (if verbalized by the patient): Female Spir
[2020-12-13] MEDS: SODIUM CHLORIDE 0.9% IV 250 ML 30 ML IV CONT (20:00)
[2020-12-13] MEDS: PANTOPRAZOLE SODIUM IV 40 MG VIAL IV PUSH (21:27)
[2020-12-13] MEDS: IRON SUCROSE COMPLEX 500 MG in SODIUM CHLORIDE 0.9% IV 250 ML 78.57 MG IVPB (21:27)
[2020-12-13] MEDS: cycloSPORINE 0.4 ML OPHTH SOLUTION 1 DROP EACH EYE (21:27)
[2020-12-14 00:27] LABS: Hematocrit 26.5 % (37.0-47.0); Hemoglobin 7.8 g/dL (12.0-15.0)
[2020-12-14 06:00] VITALS: BP 123/70; PULSE 71; RESP 16; TEMP 36.6; O2SAT 98
[2020-12-14 06:08] LABS: Hematocrit 27.3 % (37.0-47.0); Hemoglobin 8.2 g/dL (12.0-15.0); Mean Corpuscular Hemoglobin 21.6 pg (26-34); Mean Corpuscular Volume 71.8 fl (80-100); Mean Platelet Volume 9.5 fl (7.4-10.4); Platelet Count Result 441 k/mm3 (150-375); Red Cell Distribution Width 21.2 % (11.5-14.5); White Blood Count 5.3 K/mm3 (4.5-10.0)
[2020-12-14 06:24] LABS: Anion Gap 6 mmol/L (8-16); Blood Urea Nitrogen 6 mg/dL (7-17); Calcium 9.2 mg/dL (8.4-10.2); Carbon Dioxide 22 mmol/L (22-30); Chloride 107 mmol/L (98-107); Estimated Glomerular Filt Rate > 60; Glucose 97 mg/dL (65-110); Potassium 4.3 mmol/L (3.4-5.0); Sodium 135 mmol/L (137-145)
[2020-12-14] MEDS: PANTOPRAZOLE SODIUM IV 40 MG VIAL IV PUSH ×2 (08:00→21:06)
[2020-12-14 13:07] VITALS: BP 97/62; PULSE 73; RESP 18; TEMP 36.6; O2SAT 100
--- NOTE | 2020-12-14 13:46 | PM.IMPN ---
Progress Note: A&P Assessment and Plan (1) Acute blood loss anemia: Code(s): D62 - Acute posthemorrhagic anemia Status: Acute Assessment and Plan: The patient has iron deficiency anemia likely secondary to occult GI blood loss in combination with inadequate oral iron intake vs abnormal absorption vs gastritis/esophagitis/PUD vs bleeding mass vs other. The patient had a recent colonoscopy 03/30/21 that was unremarkable except for polyps that had been removed. Gastroenterology has been consulted and it is anticipated the patient will have EGD on Friday. Patient received 2 units of packed red blood cells with improvement of her H&H to 8./ today. Will also give 1 more dose of Venofer 500 mg IV (#2/2). Will repeat H&H in the morning. NPO after midnight for EGD. Appreciate GI input. PPI BID at this time. Will need PO Ferrous sulfate after discharge with vitamin-C to improve iron absorption. (2) Symptomatic anemia: Code(s): D64.9 - Anemia, unspecified Status: Acute Assessment and Plan: Acute iron deficiency anemia See above Additional Plan Time Spent With Patient Time with patient: 25 - 35 minutes Subjective Date/time seen: 12/14/20 13:46 Interval history: date of service 12/14/2020: the patient reports feeling much better today, improved fatigue, generalized weakness and shortness of breath. She is eating and drinking without any issues. She told me that 2 months ago she had episode of vertigo With her Meniere's disease which was intermittent for 17 days with associated nausea and vomiting. She vomited almost every single day during that time. Until the episode resolved. otherwise she takes ibuprofen only intermittently for aches and pains in but not routinely. She is not on any other chronic medications daily. She has not had any chest pain, cough, fevers, chills, nausea, vomiting, abdominal pain, melena, hematochezia, leg swelling, calf pain or any other symptoms at this time. Review of Systems Review of Systems: All systems reviewed & are unremarkable except as noted in HPI and below Exam Narrative: General: 70-year-old woman sitting up in bed watching TV. Appears comfortable. In no acute distress. Skin: No jaundice or cyanosis. Good skin turgor. Neck: Full range of motion. Supple. Respiratory: Lungs are clear to auscultation bilaterally. No bony chest wall tenderness. Cardiovascular: The heart has a regular rate and rhythm without murmur. Lower extremities: No lower extremity edema. Distal pulses are easily palpated. No calf tenderness to palpation. Gastrointestinal: The abdomen is soft, nontender and nondistended with active bowel sounds. Psychiatric: Lucid and oriented. Memory intact. Neurologic: No focal deficits. Speech is clear. No facial drooping. Objective Data Vital Signs Vital Signs: Vital Signs - 24 hr 12/13/20 14:31 12/13/20 14:46 12/13/20 15:36 Temperature 97.9 F 98.4 F Pulse Rate 79 88 80 Respiratory Rate 21 H 19 16 Blood Pressure 122/68 146/79 H 125/73 Pulse Oximetry 98 99 100 12/13/20 15:46 12/13/20 17:10 12/13/20 18:35 Temperature 97.0 F L 96.8 F L 95.8 F L Pulse Rate 79 74 79 Respiratory Rate 20 18 18 Blood Pressure 139/78 111/75 119/74 Pulse Oximetry 99 99 100 12/13/20 18:39 12/13/20 19:39 12/13/20 21:00 Temperature 98.3 F 98.8 F 98.8 F Pulse Rate 77 80 82 Respiratory Rate 18 18 18 Blood Pressure 135/59 L 140/67 134/69 Pulse Oximetry 100 100 98 12/13/20 21:36 12/13/20 21:53 12/14/20 06:00 Temperature 98.8 F 97.8 F Pulse Rate 82 71 Respiratory Rate 18 16 Blood Pressure 134/69 123/70 Pulse Oximetry 98 99 98 Intake/Output Intake/Output: Intake & Output 12/11/20 12/12/20 12/13/20 12/14/20 23:59 23:59 23:59 23:59 Intake Total 1730 755 Output Total 2100 750 Balance -370 5 Meds/Results Medications: Active Medi
[2020-12-14] MEDS: IRON SUCROSE COMPLEX 500 MG in SODIUM CHLORIDE 0.9% IV 250 ML 78.57 MG IVPB (14:43)
[2020-12-14 20:00] VITALS: BP 122/67; PULSE 77; RESP 16; TEMP 36.1; O2SAT 99
[2020-12-14 21:16] VITALS: BMI 26.2
[2020-12-14 23:25] VITALS: O2SAT 98
[2020-12-15 05:16] VITALS: BP 96/59; PULSE 83; RESP 16; TEMP 35.7; O2SAT 98
[2020-12-15 05:55] LABS: Hemoglobin 8.6 g/dL (12.0-15.0); Mean Corpuscular HGB Conc 29.7 g/dl (32-36); Mean Corpuscular Hemoglobin 21.3 pg (26-34); Mean Corpuscular Volume 71.8 fl (80-100); Mean Platelet Volume 9.4 fl (7.4-10.4); Platelet Count Result 465 k/mm3 (150-375); Red Blood Count 4.04 M/mm3 (4.2-5.4); Red Cell Distribution Width 22.2 % (11.5-14.5); White Blood Count 5.2 K/mm3 (4.5-10.0)
[2020-12-15 05:59] LABS: Anion Gap 7 mmol/L (8-16); Blood Urea Nitrogen 10 mg/dL (7-17); Calcium 9.2 mg/dL (8.4-10.2); Carbon Dioxide 23 mmol/L (22-30); Chloride 102 mmol/L (98-107); Estimated CRCL calculation 70 ml/min; Estimated Glomerular Filt Rate > 60; Glucose 100 mg/dL (65-110); Potassium 4.2 mmol/L (3.4-5.0); Sodium 132 mmol/L (137-145)
[2020-12-15] MEDS: PANTOPRAZOLE SODIUM IV 40 MG VIAL IV PUSH (08:21)
[2020-12-15] MEDS: LACTATED RINGERS 1,000 ML 150 ML IV CONT (08:21)
[2020-12-15] MEDS: cycloSPORINE 0.4 ML OPHTH SOLUTION 1 DROP EACH EYE (08:21)
--- NOTE | 2020-12-15 13:05 | WPDANESEPPF ---
Anes - Initial Pre Proc Eval Procedure: Operation Date: 12/15/20 14:15 Proposed Procedures p Esophagogastroduodenoscopy - Romeo Alcantara MD Date/Time: 12/15/20 13:05 Surgeon: Racheal Dhillon PA-C Pre Op Diagnosis: anemia Patient Data Age: 70 Gender: F Height: 1.52 m Weight: 60.9 kg Last Vital Signs Temp 35.7 C L 12/15/20 05:16 Pulse 83 12/15/20 05:16 Resp 16 12/15/20 05:16 BP 96/59 L 12/15/20 05:16 Pulse Ox 98 12/15/20 05:16 Allergies Allergy/AdvReac Type Severity Reaction Status Date / Time cyclobenzaprine Allergy Severe Other Verified 12/22/20 10:49 gluten Allergy Intermediate Gastrointestinal Verified 12/22/20 10:49 Upset codeine AdvReac Intermediate STOMACH Verified 12/22/20 10:49 PAIN/CRAMPING Home Medications Medication Instructions Recorded Confirmed Type Restasis 1 drp EACH EYE BID 12/13/20 12/22/20 History ferrous sulfate 325 mg PO BID #60 tablet 12/15/20 12/22/20 Rx pantoprazole 40 mg PO BID 28 Days #60 tablet 12/15/20 12/22/20 Rx Laboratory Tests 12/13/20 12/15/20 12/15/20 12:48 05:33 05:33 WBC 5.2 K/mm3 K/mm3 (4.5-10.0) RBC 4.04 M/mm3 L M/mm3 (4.2-5.4) Hgb 8.6 g/dL L g/dL (12.0-15.0) Hct 29.0 % L % (37.0-47.0) MCV 71.8 fl L fl (80-100) MCH 21.3 pg L pg (26-34) MCHC 29.7 g/dl L g/dl (32-36) RDW 22.2 % H % (11.5-14.5) Plt Count 465 k/mm3 H k/mm3 (150-375) MPV 9.4 fl fl (7.4-10.4) Sodium 132 mmol/L L mmol/L (137-145) Potassium 4.2 mmol/L mmol/L (3.4-5.0) Chloride 102 mmol/L mmol/L (98-107) Carbon Dioxide 23 mmol/L mmol/L (22-30) Anion Gap 7 mmol/L L mmol/L (8-16) BUN 10 mg/dL mg/dL (7-17) Creatinine 0.50 mg/dL L mg/dL (0.7-1.0) Estim Creat Clear Calc 70 ml/min ml/min Estimated GFR > 60 (59 - ) Glucose 100 mg/dL mg/dL (65-110) Calcium 9.2 mg/dL mg/dL (8.4-10.2) Stl Occult Blood (IFOB) Cancelled Patient hx anesthesia problems: none Family hx anesthesia problems: none [facility] Past Medical History Medical History (Updated 12/22/20 @ 15:12 by Ernesto Hicks MD) Acute right hip pain Acute right-sided low back pain with left-sided sciatica Adenomatous colon polyp (~03/2020) Age-related osteoporosis without current pathological fracture BMI 25.0-25.9,adult Celiac disease Cyst of right kidney Duodenal ulcer Iron deficiency anemia Meniere's disease, bilateral Mixed hyperlipidemia Other spondylosis with radiculopathy, lumbar region Profound hearing loss of both ears Vitamin D deficiency, unspecified Surgical History Surgical History History of colonoscopy with polypectomy (~03/2020) History of dilatation and curettage History of ear surgery shunt, right ear, 1997 [facility] History of tonsillectomy and adenoidectomy History of tubal ligation Hx laparoscopic cholecystectomy (06/05/20) Family History Family History Sibling Hypertension Diabetes mellitus Lymphoma COPD (chronic obstructive pulmonary disease) Mother , at 101 years old Diabetes mellitus Father , at age 57 Malignant neoplasm of prostate Social History Social History Second hand tobacco smoke exposure: No Alcohol intake: never Substance use: never Additional living arrangements comments: She lives at home alone. She reports that she is happily . She has 1 soft and 1 daughter. Her son lives locally. She is independent in activities of daily living. Additional occupation/education comments: teacher Gender identity (if verbalized by the patient): Female Spiritual care concerns: No An
[2020-12-15 13:35] VITALS: BP 128/65; PULSE 96; RESP 18; TEMP 36.6; O2SAT 96
[2020-12-15] MEDS: BENZOCAINE (*SP) 60 ML SPRAY CAN (HURRICAINE) 1 SPRAY MUCOUS MEM (14:22)
[2020-12-15 14:47] VITALS: BP 84/45; PULSE 92; RESP 21; O2SAT 97
[2020-12-15 14:57] VITALS: BP 98/55; PULSE 81; RESP 22; O2SAT 98
[2020-12-15 15:07] VITALS: BP 120/70; PULSE 75; RESP 13; O2SAT 99
--- NOTE | 2020-12-15 16:48 | PM.DS ---
DS: Admitting Diagnosis Admitting Diagnosis Abnormal labs DS: Discharge Diagnosis Discharge Diagnosis (1) Acute blood loss anemia: Code(s): D62 - Acute posthemorrhagic anemia Status: Acute Assessment and Plan: Patient is a 70-year-old woman with no chronic medical history other than celiac disease, who presented to the emergency room after being found by her primary care provider to have abnormal labs with anemia and hemoglobin of 5. Patient received 2 units of packed red blood cells with improvement of her H&H to 8.2/ today. The patient was found to have iron deficiency anemia likely secondary to occult GI blood loss in combination with inadequate oral iron intake vs abnormal absorption vs gastritis/esophagitis/PUD vs bleeding mass vs other. She was given Venofer 500 mg IV (#2/2). The patient had a recent colonoscopy 03/30/21 that was unremarkable except for polyps that had been removed. Gastroenterology has been consulted and preformed an EGD showing large ulcerated site in duodenum as cause of GI be and systematic anemia, pending biopsy to rule out dysplasia and even more malignancy. Day also performed a small-bowel follow-through which showed No etiology for anemia. She was discharged with Protonix 40 mg b.i.d. to take long-term, avoid NSAIDs. she will follow-up with Dr. Koch next week in follow-up with repeat H&H and return emergency with any signs of bleeding. She may need an EGD in 6-8 weeks if biopsies do not show any other cause. Follow-up instructions given. Return to ER warnings given. Patient understands and agrees the plan all questions answered. (2) Symptomatic anemia: Code(s): D64.9 - Anemia, unspecified Status: Acute Assessment and Plan: Acute iron deficiency anemia See above DS: Summary Hospital Course Hospital Course: See above Status at Discharge Cognitive/behavioral status at discharge: Stable, improved. Time Spent with Patient Time attestation: Total time spent providing and/or coordinating discharge services: 43 Time spent: Greater than 30 minutes Exam Narrative: General: 70-year-old woman sitting up in bed watching TV. Appears comfortable. In no acute distress. Skin: No jaundice or cyanosis. Good skin turgor. Neck: Full range of motion. Supple. Respiratory: Lungs are clear to auscultation bilaterally. No bony chest wall tenderness. Cardiovascular: The heart has a regular rate and rhythm without murmur. Lower extremities: No lower extremity edema. Distal pulses are easily palpated. No calf tenderness to palpation. Gastrointestinal: The abdomen is soft, nontender and nondistended with active bowel sounds. Psychiatric: Lucid and oriented. Memory intact. Neurologic: No focal deficits. Speech is clear. No facial drooping. DS: Data Data Completed and Pending Pending studies at discharge: Pending at discharge 12/15/20 14:37 Surgical [PTH] Routine 12/15/20 14:43 Surgical [PTH] Routine Labs on day of discharge: Labs from last 24 hours 12/15/20 12/15/20 12/13/20 05:33 05:33 12:48 WBC 5.2 RBC 4.04 L Hgb 8.6 L Hct 29.0 L MCV 71.8 L MCH 21.3 L MCHC 29.7 L RDW 22.2 H Plt Count 465 H MPV 9.4 Sodium 132 L Potassium 4.2 Chloride 102 Carbon Dioxide 23 Anion Gap 7 L BUN 10 Creatinine 0.50 L Estim Creat Clear Calc 70 Estimated GFR > 60 Glucose 100 Calcium 9.2 Stl Occult Blood (IFOB) Cancelled Discharge Plan Discharge Attending physician on discharge: Hemalatha Sung Consulting providers: Romeo Alcantara Discharging Clinician: Racheal Dhillon Patient Disposition: Home, Self-Care Activity: as tolerated Diet: as tolerated Discharge Instructions: Racheal Dhillon PA-C Hospitalist
--- NOTE | 2020-12-15 18:17 | PC.NURSE ---
Called results of Small Bowel Follow through to Dr Alcantara, notified that Racheal will discharge patient tonight.
[2020-12-15 21:09] LABS: Haptoglobin 152 mg/dL (43-212)
== END 2020-12-15 18:55 | disposition home or self-care (01) | DRG 843 ==
LOC: ANHED 13:31 → ANH3MED 15:05
PROVIDERS: General Practice; Internal Medicine Gastroenterology; Physician Assistant; Admitting Provider Internal Medicine; Emergency Provider Emergency Medicine; PCP Family Medicine; Visit Provider Family Medicine
PROC: 0DJ08ZZ Inspection of Upper Intestinal Tract, Via Natural or Artificial Opening Endoscopic (ICD-10-PCS; CPT 43235; principal; 2020-12-15 14:15)
DX: C80.1 Malignant (primary) neoplasm, unspecified (principal); K26.4 Chronic or unspecified duodenal ulcer with hemorrhage; D62 Acute posthemorrhagic anemia; D50.9 Iron deficiency anemia, unspecified; F17.210 Nicotine dependence, cigarettes, uncomplicated; K90.0 Celiac disease; K57.90 Diverticulosis of intestine, part unspecified, without perforation or abscess without bleeding; R06.02 Shortness of breath; R25.2 Cramp and spasm; E78.2 Mixed hyperlipidemia; Z86.010 Personal history of colon polyps
CPT/HCPCS: 36415; 36430; 71046; 74250; 80048; 80053; 82728; 83010; 83540; 83550; 83615; 84466; 84484; 85014; 85018; 85025; 85027; 85610; 85730; 86850; 86900; 86901; 86920; 88305; 88342; 93005; 96365; 96366; 96375; 96376; 99285; A9270; C9113; G0378; J1756; J2704; J7030; J7050; J7120; P9016

== ENCOUNTER 2020-12-25 06:47 | Outpatient (CLI) | payer MEDICARE, SELFPAY ==
[2020-12-25 07:39] LABS: Hematocrit 33.2 % (37.0-47.0); Hemoglobin 9.4 g/dL (12.0-15.0); Mean Corpuscular HGB Conc 28.3 g/dl (32-36); Mean Corpuscular Hemoglobin 22.7 pg (26-34); Mean Platelet Volume 9.6 fl (7.4-10.4); Platelet Count Result 380 k/mm3 (150-375); Red Blood Count 4.15 M/mm3 (4.2-5.4); Red Cell Distribution Width 28.1 % (11.5-14.5); White Blood Count 3.5 K/mm3 (4.5-10.0)
== END 2020-12-25 06:48 | disposition home or self-care (01) ==
PROVIDERS: PCP Family Medicine; Visit Provider Physician Assistant
DX: D62 Acute posthemorrhagic anemia (principal)
CPT/HCPCS: 36415; 85027

== ENCOUNTER 2020-12-29 09:57 | Outpatient (CLI) | payer MEDICARE, SELFPAY ==
--- NOTE | ~2020-12-29 | CT_ITS ---
EXAMINATION: CT abdomen pelvis w con DATE: 12/29/2020 10:36 INDICATION: Malignant neoplasm of the duodenum. TECHNIQUE: Computed tomography (CT) of the abdomen and pelvis was performed with 100 mL Omnipaque 350 intravenous contrast. Automated exposure control and iterative reconstruction technique were employe d. The dose-length product was 252.70 mGy-cm. COMPARISON: None. FINDINGS: The visualized portions of the lung bases demonstrate mild atelectasis. There is a 6 mm nod ule in left lung lower lobe. No pleural effusion. The heart size is normal. There are coronary artery calcifications. No pericardial effusion. The liver and spleen are normal. There are changes of nini cystectomy. The pancreas and adrenal glands are normal. There are cysts in the kidneys measuring up t o 3.4 cm on the right. There is diverticulosis of the colon without evidence of diverticulitis. The a ppendix is normal. There are no pathologically enlarged lymph nodes. There is no free intraperitoneal fluid. There is mild thoracolumbar spondylosis. There is a chronic compression fracture of T11. IMPRESSION: 1. 6 mm pulmonary nodule, probably benign. Consider noncontrast low-dose chest CT in 6-12 months. Reviewed, dictated and finalized at location B.
== END 2020-12-29 09:58 | disposition home or self-care (01) ==
LOC: ANHIMG 10:00
PROVIDERS: PCP Family Medicine; Visit Provider Nurse Practitioner Family
DX: C17.0 Malignant neoplasm of duodenum (principal); R91.1 Solitary pulmonary nodule
CPT/HCPCS: 74177; Q9967

== ENCOUNTER 2021-01-10 14:37 | Outpatient (CLI) | payer MEDICARE, SELFPAY ==
[2021-01-10 14:55] LABS: Basophils Percent Auto 0.5 % (0.2-1.2); Eosinophils Absolute Auto 0.1 K/mm3 (0-0.3); Eosinophils Percent Auto 2.2 % (0-4.4); Hematocrit 33.4 % (37.0-47.0); Hemoglobin 10.2 g/dL (12.0-15.0); Immature Granulocyte Absolute 0.01 K/mm3 (0.00-0.031); Immature Granulocyte Percent A 0.3 % (0-0.5); Lymphocytes Absolute Auto 1.29 K/mm3 (0.9-3.2); Lymphocytes Percent Auto 34.9 % (18.3-44.2); Mean Corpuscular HGB Conc 30.5 g/dl (32-36); Mean Corpuscular Hemoglobin 24.6 pg (26-34); Mean Corpuscular Volume 80.7 fl (80-100); Mean Platelet Volume 8.8 fl (7.4-10.4); Monocytes Absolute Auto 0.4 K/mm3 (0.1-0.6); Monocytes Percent Auto 10.3 % (2.6-8.5); Neutrophils Absolute Auto 1.9 K/mm3 (1.3-6.7); Neutrophils Percent Auto 51.8 % (45.5-73.1); Platelet Count Result 307 k/mm3 (150-375); Red Blood Count 4.14 M/mm3 (4.2-5.4); White Blood Count 3.7 K/mm3 (4.5-10.0)
[2021-01-10 15:01] LABS: Atypical Lymphocytes Present; Hypochromasia 1+ (NORMAL); Ovalocytes 1+ (NORMAL); Platelet Estimate Adequate (Adequate)
[2021-01-10 15:02] LABS: Poikilocytosis 1+ (NORMAL)
[2021-01-10 16:43] LABS: Iron 80 ug/dL (37-170)
[2021-01-10 16:45] LABS: Alanine Aminotransferase 17 U/L (4-35); Albumin Level 4.2 g/dL (3.5-5.1); Alkaline Phosphatase 72 U/L (38-126); Anion Gap 8 mmol/L (8-16); Aspartate Amino Transferase 27 U/L (14-36); Bilirubin,Total 0.4 mg/dL (0.2-1.3); Blood Urea Nitrogen 7 mg/dL (7-17); Calcium 9.6 mg/dL (8.4-10.2); Carbon Dioxide 27 mmol/L (22-30); Chloride 104 mmol/L (98-107); Estimated Glomerular Filt Rate > 60; Glucose 86 mg/dL (65-110); Potassium 4.5 mmol/L (3.4-5.0); Sodium 139 mmol/L (137-145)
[2021-01-10 16:53] LABS: Percent Iron Saturation 27 % (20-50)
[2021-01-10 17:14] LABS: Carcinoembryonic Antigen 0.5 ng/mL (0.0-3.0)
== END 2021-01-10 14:38 | disposition home or self-care (01) ==
LOC: ANHLAB 14:42
PROVIDERS: PCP Family Medicine; Visit Provider Internal Medicine Hematology & Oncology
DX: C17.0 Malignant neoplasm of duodenum (principal)
CPT/HCPCS: 36415; 80053; 82378; 82728; 83540; 83550; 85025

== ENCOUNTER 2021-07-23 09:29 | Outpatient (CLI) | payer MEDICARE, SELFPAY ==
--- NOTE | ~2021-07-23 | CT_ITS ---
EXAMINATION: CT abdomen pelvis w con DATE: 07/23/2021 09:58 INDICATION: Adenocarcinoma of the duodenum. TECHNIQUE: Computed tomography (CT) of the abdomen and pelvis was performed with 100 mL Omnipaque 350 intravenous contrast. Automated exposure control and iterative reconstruction technique were employe d. The dose-length product was 263.31 mGy-cm. COMPARISON: CT abdomen and pelvis 12/29/2020 FINDINGS: The visualized portions of the lung bases demonstrate mild atelectasis. There is a 6 mm nod ule in left lower lobe without change, likely benign. No pleural effusion. The heart size is normal. There are coronary artery calcifications. No pericardial effusion. The liver and spleen are normal. T here are changes of cholecystectomy. The pancreas and adrenal glands are normal. There are cysts in t he kidneys measuring up to 3.3 cm in the right. There are surgical changes of the bowel including gas trojejunostomy. There are no dilated loops of bowel. The appendix is normal. There are no pathologica lly enlarged lymph nodes. There is no free intraperitoneal fluid. There is mild thoracolumbar spondyl osis. IMPRESSION: 1. No evidence of metastatic disease. Reviewed, dictated and finalized at location A.
[2021-07-23 09:52] LABS: Estimated Glomerular Filt Rate > 60
== END 2021-07-23 09:30 | disposition home or self-care (01) ==
LOC: ANHIMG 09:32
PROVIDERS: PCP Family Medicine; Visit Provider Internal Medicine Hematology & Oncology
DX: C17.0 Malignant neoplasm of duodenum (principal)
CPT/HCPCS: 74177; Q9967

== ENCOUNTER 2021-07-30 11:21 | Outpatient (CLI) | payer MEDICARE, SELFPAY ==
[2021-07-30 11:36] LABS: Basophils Percent Auto 0.7 % (0.2-1.2); Eosinophils Absolute Auto 0.1 K/mm3 (0-0.3); Eosinophils Percent Auto 3.2 % (0-4.4); Hematocrit 41.4 % (37.0-47.0); Hemoglobin 13.1 g/dL (12.0-15.0); Lymphocytes Absolute Auto 1.17 K/mm3 (0.9-3.2); Lymphocytes Percent Auto 27.1 % (18.3-44.2); Mean Corpuscular HGB Conc 31.6 g/dl (32-36); Mean Corpuscular Hemoglobin 29.1 pg (26-34); Mean Platelet Volume 9.2 fl (7.4-10.4); Monocytes Absolute Auto 0.5 K/mm3 (0.1-0.6); Monocytes Percent Auto 11.1 % (2.6-8.5); Neutrophils Absolute Auto 2.5 K/mm3 (1.3-6.7); Neutrophils Percent Auto 57.9 % (45.5-73.1); Platelet Count Result 336 k/mm3 (150-375); Red Cell Distribution Width 14.6 % (11.5-14.5); White Blood Count 4.3 K/mm3 (4.5-10.0)
[2021-07-30 11:40] LABS: Blood Urea Nitrogen 13 mg/dL (8-26); Carbon Dioxide 28 mmol/L (22-30); Chloride 103 mmol/L (98-109); Estimated Glomerular Filt Rate > 60; Glucose 111 mg/dL (70-105); Potassium 4.3 mmol/L (3.5-4.9); Sodium 140 mmol/L (138-146)
[2021-07-30 12:53] LABS: Alanine Aminotransferase 20 U/L (4-35); Albumin Level 4.3 g/dL (3.5-5.1); Alkaline Phosphatase 86 U/L (38-126); Anion Gap 6 mmol/L (8-16); Aspartate Amino Transferase 27 U/L (14-36); Bilirubin,Total 0.3 mg/dL (0.2-1.3); Blood Urea Nitrogen 14 mg/dL (7-17); Calcium 8.8 mg/dL (8.4-10.2); Carbon Dioxide 27 mmol/L (22-30); Chloride 104 mmol/L (98-107); Estimated Glomerular Filt Rate > 60; Glucose 109 mg/dL (65-110); Potassium 4.1 mmol/L (3.4-5.0); Sodium 137 mmol/L (137-145)
[2021-07-30 13:15] LABS: Carcinoembryonic Antigen 0.4 ng/mL (0.0-3.0)
== END 2021-07-30 11:22 | disposition home or self-care (01) ==
LOC: ANHLAB 11:22
PROVIDERS: PCP Family Medicine; Visit Provider Internal Medicine Hematology & Oncology
DX: C17.0 Malignant neoplasm of duodenum (principal)
CPT/HCPCS: 36415; 80053; 82378; 85025

== ENCOUNTER 2021-11-29 10:25 | Outpatient (CLI) | payer MEDICARE, SELFPAY ==
[2021-11-29 10:42] LABS: Basophils Percent Auto 0.8 % (0.2-1.2); Eosinophils Absolute Auto 0.4 K/mm3 (0-0.3); Eosinophils Percent Auto 7.8 % (0-4.4); Hematocrit 37.3 % (37.0-47.0); Hemoglobin 11.9 g/dL (12.0-15.0); Immature Granulocyte Absolute 0.01 K/mm3 (0.00-0.031); Immature Granulocyte Percent A 0.2 % (0-0.5); Lymphocytes Absolute Auto 1.61 K/mm3 (0.9-3.2); Lymphocytes Percent Auto 32.4 % (18.3-44.2); Mean Corpuscular HGB Conc 31.9 g/dl (32-36); Mean Corpuscular Hemoglobin 28.4 pg (26-34); Monocytes Absolute Auto 0.7 K/mm3 (0.1-0.6); Monocytes Percent Auto 13.1 % (2.6-8.5); Neutrophils Absolute Auto 2.3 K/mm3 (1.3-6.7); Neutrophils Percent Auto 45.7 % (45.5-73.1); Platelet Count Result 298 k/mm3 (150-375); Red Blood Count 4.19 M/mm3 (4.2-5.4); Red Cell Distribution Width 13.7 % (11.5-14.5)
[2021-11-29 10:45] LABS: Blood Urea Nitrogen 12 mg/dL (8-26); Carbon Dioxide 27 mmol/L (22-30); Chloride 102 mmol/L (98-109); Estimated Glomerular Filt Rate > 60; Glucose 107 mg/dL (70-105); Ionized Calcium (POC) 1.17 mmol/L (1.11-1.31); Potassium 4.3 mmol/L (3.5-4.9); Sodium 139 mmol/L (138-146)
[2021-11-29 15:49] LABS: Alanine Aminotransferase 14 U/L (6-35); Alkaline Phosphatase 94 U/L (38-126); Anion Gap 5 mmol/L (8-16); Aspartate Amino Transferase 22 U/L (14-36); Bilirubin,Total 0.4 mg/dL (0.2-1.3); Blood Urea Nitrogen 13 mg/dL (7-17); Carbon Dioxide 28 mmol/L (22-30); Chloride 104 mmol/L (98-107); Estimated Glomerular Filt Rate > 60; Glucose 104 mg/dL (65-110); Potassium 4.4 mmol/L (3.4-5.0); Sodium 137 mmol/L (137-145)
== END 2021-11-29 10:26 | disposition home or self-care (01) ==
LOC: ANHLAB 10:27
PROVIDERS: PCP Family Medicine; Visit Provider Internal Medicine Hematology & Oncology
DX: C17.0 Malignant neoplasm of duodenum (principal)
CPT/HCPCS: 36415; 80047; 80053; 85025

== ENCOUNTER 2022-03-18 08:12 | Outpatient (CLI) | payer MEDICARE, SELFPAY ==
[2022-03-18 09:17] LABS: Basophils Percent Auto 0.8 % (0.2-1.2); Eosinophils Absolute Auto 0.2 K/mm3 (0-0.3); Eosinophils Percent Auto 6.2 % (0-4.4); Hematocrit 38.5 % (37.0-47.0); Hemoglobin 12.6 g/dL (12.0-15.0); Immature Granulocyte Absolute 0.01 K/mm3 (0.00-0.031); Immature Granulocyte Percent A 0.3 % (0-0.5); Lymphocytes Absolute Auto 1.38 K/mm3 (0.9-3.2); Lymphocytes Percent Auto 35.5 % (18.3-44.2); Mean Corpuscular HGB Conc 32.7 g/dl (32-36); Mean Corpuscular Hemoglobin 29.1 pg (26-34); Mean Corpuscular Volume 88.9 fl (80-100); Monocytes Absolute Auto 0.5 K/mm3 (0.1-0.6); Monocytes Percent Auto 13.1 % (2.6-8.5); Neutrophils Absolute Auto 1.7 K/mm3 (1.3-6.7); Neutrophils Percent Auto 44.1 % (45.5-73.1); Platelet Count Result 329 k/mm3 (150-375); Red Blood Count 4.33 M/mm3 (4.2-5.4); Red Cell Distribution Width 13.2 % (11.5-14.5); White Blood Count 3.9 K/mm3 (4.5-10.0)
[2022-03-18 09:18] LABS: Alanine Aminotransferase 18 U/L (6-35); Albumin Level 4.3 g/dL (3.5-5.1); Alkaline Phosphatase 93 U/L (38-126); Anion Gap 10 mmol/L (8-16); Aspartate Amino Transferase 25 U/L (14-36); Bilirubin,Total 0.7 mg/dL (0.2-1.3); Blood Urea Nitrogen 13 mg/dL (7-17); Calcium 8.9 mg/dL (8.4-10.2); Carbon Dioxide 26 mmol/L (22-30); Chloride 103 mmol/L (98-107); Estimated Glomerular Filt Rate > 60; Glucose 111 mg/dL (65-110); Potassium 4.1 mmol/L (3.4-5.0); Sodium 139 mmol/L (137-145)
[2022-03-18 09:46] LABS: Carcinoembryonic Antigen 0.4 ng/mL (0.0-3.0)
== END 2022-03-18 08:13 | disposition home or self-care (01) ==
PROVIDERS: PCP Family Medicine; Visit Provider Internal Medicine Hematology & Oncology
DX: C17.0 Malignant neoplasm of duodenum (principal)
CPT/HCPCS: 36415; 80053; 82378; 85025

== ENCOUNTER 2022-09-24 08:24 | Outpatient (CLI) | payer MEDICARE, SELFPAY ==
[2022-09-24 08:37] LABS: Basophils Percent Auto 0.4 % (0.2-1.2); Eosinophils Absolute Auto 0.2 K/mm3 (0-0.3); Eosinophils Percent Auto 4.1 % (0-4.4); Hematocrit 38.7 % (37.0-47.0); Hemoglobin 12.5 g/dL (12.0-15.0); Immature Granulocyte Absolute 0.01 K/mm3 (0.00-0.031); Immature Granulocyte Percent A 0.2 % (0-0.5); Lymphocytes Absolute Auto 1.26 K/mm3 (0.9-3.2); Lymphocytes Percent Auto 26.1 % (18.3-44.2); Mean Corpuscular HGB Conc 32.3 g/dl (32-36); Mean Corpuscular Hemoglobin 27.6 pg (26-34); Mean Corpuscular Volume 85.4 fl (80-100); Mean Platelet Volume 8.9 fl (7.4-10.4); Monocytes Absolute Auto 0.6 K/mm3 (0.1-0.6); Neutrophils Absolute Auto 2.8 K/mm3 (1.3-6.7); Neutrophils Percent Auto 57.2 % (45.5-73.1); Platelet Count Result 351 k/mm3 (150-375); Red Blood Count 4.53 M/mm3 (4.2-5.4); Red Cell Distribution Width 14.4 % (11.5-14.5); White Blood Count 4.8 K/mm3 (4.5-10.0)
[2022-09-24 08:57] LABS: Blood Urea Nitrogen 14 mg/dL (8-26); Carbon Dioxide 28 mmol/L (22-30); Chloride 103 mmol/L (98-109); Estimated Glomerular Filt Rate > 60; Glucose 120 mg/dL (70-105); Ionized Calcium (POC) 1.17 mmol/L (1.11-1.31); Potassium 4.2 mmol/L (3.5-4.9); Sodium 139 mmol/L (138-146)
[2022-09-24 12:18] LABS: Alanine Aminotransferase 26 U/L (6-35); Albumin Level 4.2 g/dL (3.5-5.1); Alkaline Phosphatase 97 U/L (38-126); Anion Gap 5 mmol/L (8-16); Aspartate Amino Transferase 39 U/L (14-36); Bilirubin,Total 0.5 mg/dL (0.2-1.3); Blood Urea Nitrogen 15 mg/dL (7-17); Calcium 8.4 mg/dL (8.4-10.2); Carbon Dioxide 29 mmol/L (22-30); Chloride 102 mmol/L (98-107); Estimated Glomerular Filt Rate > 60; Glucose 116 mg/dL (65-110); Potassium 4.3 mmol/L (3.4-5.0); Sodium 136 mmol/L (137-145)
[2022-09-24 12:45] LABS: Carcinoembryonic Antigen 0.4 ng/mL (0.0-3.0)
== END 2022-09-24 08:25 | disposition home or self-care (01) ==
PROVIDERS: PCP Family Medicine; Visit Provider Internal Medicine Hematology & Oncology
DX: C17.0 Malignant neoplasm of duodenum (principal)
CPT/HCPCS: 36415; 80047; 80053; 82378; 85025

== ENCOUNTER 2023-03-26 08:24 | Outpatient (CLI) | payer MEDICARE, SELFPAY ==
[2023-03-26 08:58] LABS: Basophils Percent Auto 0.5 % (0.2-1.2); Eosinophils Absolute Auto 0.2 K/mm3 (0-0.3); Eosinophils Percent Auto 4.3 % (0-4.4); Hematocrit 38.9 % (37.0-47.0); Hemoglobin 12.6 g/dL (12.0-15.0); Lymphocytes Absolute Auto 1.08 K/mm3 (0.9-3.2); Mean Corpuscular HGB Conc 32.4 g/dl (32-36); Mean Corpuscular Hemoglobin 27.8 pg (26-34); Mean Corpuscular Volume 85.9 fl (80-100); Mean Platelet Volume 9.3 fl (7.4-10.4); Monocytes Absolute Auto 0.5 K/mm3 (0.1-0.6); Monocytes Percent Auto 14.2 % (2.6-8.5); Neutrophils Absolute Auto 1.9 K/mm3 (1.3-6.7); Platelet Count Result 346 k/mm3 (150-375); Red Blood Count 4.53 M/mm3 (4.2-5.4); White Blood Count 3.7 K/mm3 (4.5-10.0)
[2023-03-26 11:27] LABS: Alanine Aminotransferase 22 U/L (6-35); Albumin Level 4.4 g/dL (3.5-5.1); Alkaline Phosphatase 75 U/L (38-126); Anion Gap 10 mmol/L (8-16); Aspartate Amino Transferase 27 U/L (14-36); Bilirubin,Total 0.7 mg/dL (0.2-1.3); Blood Urea Nitrogen 18 mg/dL (7-17); Calcium 9.3 mg/dL (8.4-10.2); Carbon Dioxide 27 mmol/L (22-30); Chloride 104 mmol/L (98-107); Estimated Glomerular Filt Rate > 60; Glucose 115 mg/dL (65-110); Potassium 4.2 mmol/L (3.4-5.0); Sodium 141 mmol/L (137-145)
[2023-03-26 11:56] LABS: Carcinoembryonic Antigen 0.6 ng/mL (0.0-3.0)
== END 2023-03-26 08:25 | disposition home or self-care (01) ==
LOC: ANHLAB 08:27
PROVIDERS: PCP Family Medicine; Visit Provider Internal Medicine Hematology & Oncology
DX: C17.0 Malignant neoplasm of duodenum (principal)
CPT/HCPCS: 36415; 80053; 82378; 85025

== ENCOUNTER 2023-07-16 12:00 | Outpatient (CLI) | payer MEDICARE, SELFPAY ==
--- NOTE | ~2023-07-16 | MM_ITS ---
EXAMINATION: MM screening sophy BI w miguelito HISTORY: Screening mammogram TECHNIQUE: Craniocaudal and mediolateral oblique 3-D tomosynthesis images were obtained and synthetic 2-D images were generated. CAD analysis was submitted and interpreted. COMPARISON: 03/29/2020 bilateral screening mammogram BREAST PARENCHYMAL COMPOSITION: There are scattered areas of fibroglandular density. FINDINGS: There is no evidence of suspicious mass, calcification, or architectural distortion to sugg est malignancy in either breast. There has been no suspicious interval change. IMPRESSION: 1. No mammographic evidence of malignancy. 2. Recommend routine screening mammography in one year. BI-RADS Category 1: Negative Reviewed, dictated and finalized at location A. ICAL INTELLIGENCE OFFICER
== END 2023-07-16 12:01 ==
LOC: MICIMG 12:01
PROVIDERS: PCP Nurse Practitioner Family; Visit Provider Nurse Practitioner Family
DX: Z12.31 Encounter for screening mammogram for malignant neoplasm of breast (principal)
CPT/HCPCS: 77063; 77067

== ENCOUNTER 2023-09-22 08:55 | Outpatient (CLI) | payer MEDICARE, SELFPAY ==
--- NOTE | ~2023-09-22 | CT_ITS ---
Clinical Indication: Duodenal adenocarcinoma CT Scan of the Chest, Abdomen, and Pelvis with Contrast: Technique: Contiguous sections were acquired throughout the chest, abdomen, and pelvis after intraven ous administration of 100 cc of Omnipaque 350. Dose reduction technique was used on this scan by ramin bradening automated exposure control and iterative reconstruction technique. The dose-length product (DL P) was 445.85 mGy-cm. COMPARISON: 07/23/2021 Findings: There is no evidence of any significant mediastinal, hilar or axillary lymphadenopathy. The mediastin al soft tissues appear normal. There is no evidence of pleural or pericardial effusion. Stable 6 mm pleural-based nodule at the left lung base peripherally. There is a similar-appearing 6 m m pleural-based nodule at the right lower lobe posteriorly. The liver, spleen, pancreas, adrenals and kidneys are within normal limits. Cholecystectomy clips pre sent. There are atherosclerotic calcifications of the aorta. No lymphadenopathy. There is a widemouth umbilical hernia, with bulging of bowel loops into the defect. No bowel obstruct ion or bowel wall thickening. Small bowel anastomosis noted at the distal duodenum. Urinary bladder is unremarkable. No pelvic mass seen. No ascites. Impression: No definite evidence for active malignancy or metastatic disease. 2 small pleural-based pulmonary nodules, as noted above, one of which is stable. Second nodule is exc luded from the [id number] on prior exam. Consider follow-up exam in 12 months is indicated. Postoperative changes in the abdomen, as above. Reviewed, dictated and finalized at [facility]. Impression: No definite evidence for active malignancy or metastatic disease. 2 small pleural-based pulmonary nodules, as noted above, one of which is stable . Second nodule is excluded from the [id number] on prior exam. Consider foll ow-up exam in 12 months is indicated. Postoperative changes in the abdomen, as above.
[2023-09-22 09:33] LABS: Estimated Glomerular Filt Rate > 60
== END 2023-09-22 08:56 | disposition home or self-care (01) ==
PROVIDERS: PCP Nurse Practitioner Family; Visit Provider Internal Medicine Hematology & Oncology
DX: C17.0 Malignant neoplasm of duodenum (principal)
CPT/HCPCS: 71260; 74177; Q9967

== ENCOUNTER 2023-09-24 08:14 | Outpatient (CLI) | payer MEDICARE, SELFPAY ==
[2023-09-24 08:43] LABS: Basophils Percent Auto 0.6 % (0.2-1.2); Eosinophils Absolute Auto 0.2 K/mm3 (0-0.3); Eosinophils Percent Auto 4.1 % (0-4.4); Hemoglobin 12.6 g/dL (12.0-15.0); Immature Granulocyte Absolute 0.01 K/mm3 (0.00-0.031); Immature Granulocyte Percent A 0.2 % (0-0.5); Lymphocytes Absolute Auto 1.23 K/mm3 (0.9-3.2); Lymphocytes Percent Auto 22.7 % (18.3-44.2); Mean Corpuscular HGB Conc 32.3 g/dl (32-36); Mean Corpuscular Hemoglobin 28.2 pg (26-34); Mean Corpuscular Volume 87.2 fl (80-100); Mean Platelet Volume 9.2 fl (7.4-10.4); Monocytes Absolute Auto 0.5 K/mm3 (0.1-0.6); Monocytes Percent Auto 9.8 % (2.6-8.5); Neutrophils Absolute Auto 3.4 K/mm3 (1.3-6.7); Neutrophils Percent Auto 62.6 % (45.5-73.1); Platelet Count Result 286 k/mm3 (150-375); Red Blood Count 4.47 M/mm3 (4.2-5.4); Red Cell Distribution Width 13.4 % (11.5-14.5); White Blood Count 5.4 K/mm3 (4.5-10.0)
[2023-09-24 10:24] LABS: Alanine Aminotransferase 19 U/L (6-35); Albumin Level 4.3 g/dL (3.5-5.1); Alkaline Phosphatase 84 U/L (38-126); Anion Gap 7 mmol/L (4-12); Aspartate Amino Transferase 27 U/L (14-36); Bilirubin,Total 0.8 mg/dL (0.2-1.3); Blood Urea Nitrogen 10 mg/dL (7-17); Calcium 8.8 mg/dL (8.4-10.2); Carbon Dioxide 25 mmol/L (22-30); Chloride 106 mmol/L (98-107); Estimated Glomerular Filt Rate > 60; Glucose 110 mg/dL (65-110); Potassium 4.1 mmol/L (3.4-5.0); Sodium 138 mmol/L (137-145)
[2023-09-24 10:51] LABS: Carcinoembryonic Antigen 0.4 ng/mL (0.0-3.0)
== END 2023-09-24 08:15 | disposition home or self-care (01) ==
LOC: ANHLAB 08:15
PROVIDERS: PCP Nurse Practitioner Family; Visit Provider Internal Medicine Hematology & Oncology
DX: C17.0 Malignant neoplasm of duodenum (principal)
CPT/HCPCS: 36415; 80053; 82378; 85025

== ENCOUNTER 2024-03-22 07:36 | Outpatient (CLI) | payer MEDICARE, SELFPAY ==
--- NOTE | ~2024-03-22 | CT_ITS ---
EXAMINATION: CT chest abdomen pelvis w con DATE: 03/22/2024 08:24 INDICATION: Adenocarcinoma of the duodenum. TECHNIQUE: Computed tomography (CT) of the chest, abdomen, and pelvis was performed with 100 mL Omnip aque 350 intravenous contrast. Automated exposure control and iterative reconstruction technique were employed. The dose-length product was 768.33 mGy-cm. COMPARISON: CT chest, abdomen, and pelvis 09/22/2023, CT abdomen and pelvis 07/23/2021 FINDINGS: CHEST CT: The lungs demonstrate mild atelectasis. There is a 7 mm nodule in left lower lobe. There is a 5 mm no dule in left lower lobe. These nodules are stable from 07/23/2021, likely benign. No pleural effusion. The heart size is normal. There are coronary artery calcifications. No pericardial effusion. There i s mild thoracic spondylosis. There is mild chronic height loss at T4 and T11 vertebral bodies. ABDOMEN/PELVIS CT: The liver and spleen are normal. There are changes of cholecystectomy. The pancreas and adrenal gland s are normal. There are cysts in right kidney measuring up to 3.9 cm. Left kidney is normal. There is diverticulosis of the colon without evidence of diverticulitis. There are no dilated loops of bowel. The appendix is normal. There are no pathologically enlarged lymph nodes. There is no free intraperi toneal fluid. There is mild lumbar spondylosis. IMPRESSION: 1. No evidence of metastatic disease. Reviewed, dictated and finalized at location [] F TECHNICIAN HELPER
[2024-03-22 08:14] LABS: Estimated Glomerular Filt Rate > 60
== END 2024-03-22 07:37 | disposition home or self-care (01) ==
PROVIDERS: PCP Nurse Practitioner Family; Visit Provider Internal Medicine Hematology & Oncology
DX: C17.0 Malignant neoplasm of duodenum (principal)
CPT/HCPCS: 71260; 74177; Q9967

== ENCOUNTER 2024-03-29 09:00 | Outpatient (CLI) | payer MEDICARE, SELFPAY ==
[2024-03-29 09:17] LABS: Basophils Percent Auto 0.7 % (0.2-1.2); Eosinophils Absolute Auto 0.2 K/mm3 (0-0.3); Eosinophils Percent Auto 3.8 % (0-4.4); Hemoglobin 12.8 g/dL (12.0-15.0); Immature Granulocyte Absolute 0.01 K/mm3 (0.00-0.031); Immature Granulocyte Percent A 0.2 % (0-0.5); Lymphocytes Absolute Auto 1.39 K/mm3 (0.9-3.2); Mean Corpuscular HGB Conc 32.8 g/dl (32-36); Mean Corpuscular Hemoglobin 28.5 pg (26-34); Mean Corpuscular Volume 86.9 fl (80-100); Mean Platelet Volume 9.2 fl (7.4-10.4); Monocytes Absolute Auto 0.5 K/mm3 (0.1-0.6); Neutrophils Absolute Auto 2.4 K/mm3 (1.3-6.7); Neutrophils Percent Auto 54.3 % (45.5-73.1); Platelet Count Result 304 k/mm3 (150-375); Red Blood Count 4.49 M/mm3 (4.2-5.4); Red Cell Distribution Width 13.4 % (11.5-14.5); White Blood Count 4.5 K/mm3 (4.5-10.0)
[2024-03-29 10:42] LABS: Alanine Aminotransferase 20 U/L (6-35); Albumin Level 4.1 g/dL (3.5-5.1); Alkaline Phosphatase 87 U/L (38-126); Anion Gap 6 mmol/L (4-12); Aspartate Amino Transferase 25 U/L (14-36); Bilirubin,Total 0.5 mg/dL (0.2-1.3); Blood Urea Nitrogen 14 mg/dL (7-17); Calcium 8.9 mg/dL (8.4-10.2); Carbon Dioxide 25 mmol/L (22-30); Chloride 105 mmol/L (98-107); Estimated Glomerular Filt Rate > 60; Glucose 127 mg/dL (65-110); Potassium 4.5 mmol/L (3.4-5.0); Sodium 136 mmol/L (137-145)
[2024-03-29 16:09] LABS: Carcinoembryonic Antigen 0.6 ng/mL (0.0-3.0)
== END 2024-03-29 09:01 | disposition home or self-care (01) ==
LOC: ANHLAB 09:02
PROVIDERS: PCP Nurse Practitioner Family; Visit Provider Internal Medicine Hematology & Oncology
DX: C17.0 Malignant neoplasm of duodenum (principal)
CPT/HCPCS: 36415; 80053; 82378; 85025

== ENCOUNTER 2024-07-19 07:07 | Outpatient (CLI) | payer MEDICARE, SELFPAY ==
--- NOTE | ~2024-07-19 | MM_ITS ---
EXAMINATION: MM screening sophy BI w miguelito HISTORY: Screening mammogram TECHNIQUE: Craniocaudal and mediolateral oblique 3-D tomosynthesis images were obtained and synthetic 2-D images were generated. CAD analysis was submitted and interpreted. COMPARISON: 07/16/2023, 03/29/2020 BREAST PARENCHYMAL COMPOSITION:Not Dense. There are scattered areas of fibroglandular density. FINDINGS: No suspicious mass, calcification, or architectural distortion are identified in either lópez ast to suggest malignancy. There has been no suspicious interval change. IMPRESSION: No mammographic evidence of malignancy. Recommend routine screening mammography in one year. BI-RADS Category 1: Negative Reviewed, dictated and finalized at location .
== END 2024-07-19 07:08 | disposition home or self-care (01) ==
LOC: MICIMG 07:08
PROVIDERS: PCP Family Medicine; Visit Provider Family Medicine
DX: Z12.31 Encounter for screening mammogram for malignant neoplasm of breast (principal)
CPT/HCPCS: 77063; 77067

== ENCOUNTER 2024-07-30 00:28 | Day surgery (SDC) | payer MEDICARE, SELFPAY ==
[2024-07-22 15:07] VITALS: BMI 29.2
--- OUTSIDE RECORDS SUMMARY | 2024-07-30 00:31 | XMS_ITS | Continuity of Care Document ---
Author Organization [facility] Address [id number] [place] [address] [place] [address] Phone Care Team Providers Care Scrum Product Owner Name Role Phone De Guzman OD, Pa Unavailable Unavailable Procedures Procedure Date Office/outpatient Visit, Est Office/outpatient Visit, Est Eye Exam Established Pt Office Consultation Ophthalmoscopy Optic Nerve Topography Office/outpatient Visit, Est Advance Directives Directive Yes / No Effective Date File Name No Information Encounters Encounter Description Practice Location Reason(s) For Visit Diagnoses Date Provider Providers Copied on Encounter Office/outpati ent Visit, Est [facility], [id number] [place] [address] [address], [place], [place], [id number], [place] tel:[phone] [facility] No Information Aug-2 7-201 0 De Guzman OD Pa. [address], [place], [place], [facility], [place]. tel:[phone] Office/outpati ent Visit, Est [facility], [address], [place], [place], [id number], [place] tel:[phone] SEC [facility] No Information Aug-2 2-201 0 De Guzman OD Pa. [address] , [address], [place], [address], [place]. tel:[phone] [facility], [address], [place], [place], [id number], [place] tel:[phone] [facility] No Information 2 0-200 9 [address] [place], [address], [place]. tel:[phone] Office Consultation [facility], [address] [place] [address] [address], [place], [place], [id number], [place] tel:[phone] [facility] No Information Oct-2 2-200 9 Of[address] [place], [address], [place]. tel:[phone] Referring Provider: Eliu Nicholas, [address], [place], [place], [facility]. tel:[phone] Office/outpati ent Visit, [facility], [address], [place], [place], [id number], [place] tel:[phone] [facility] No Information 2-200 9 [address] [facility] , [address], [place], [address], [place]. tel:[phone] Family History Family Member Type Diagnosis Age At Onset No Information Payers Payer name Insurance type Covered green party ID Authoriza tion(s) No Information Social History Type Description Quantity Date Captured Comments Sex Female Smoking Status No Information Chief Complaint And Reason For Visit No Information Reason For Referral Reason For Referral No Information History Of Present Illness Encounter Date Complaint History Of Prese nt Illness No Information Functional Status Date Functional Assessmen t No Information Instructions Date Instruction Additional Infor mation No Information Assessments Type Assessment Date No Information Patient Care Teams Name Effective Dates (start - stop) Status Members No Information
--- OUTSIDE RECORDS SUMMARY | 2024-07-30 00:32 | XMS_ITS | Encounter Summary ---
Author Organization [facility] Address [address] [place] [address] Care Team Providers Care Bid Analyst Name Role Phone Ernesto Hicks MD Primary Care Provider [phone] Encounter Details Date Type Department Care Team (Late Contact Info) Description 07/28/2024 External Device Data ST[facility] ABSTRACTION Provider, Abstract NO ADDRESS ON FILE Social History Tobacco Use Types Packs/Day Years Used Date Smoking Tobacco: Former Cigarettes 1 20 0 05/12/1974 - 05/12/1994 Smokeless Tobacco: Never Alcohol Use Standard Drinks/Week Comments Not Currently 0 (1 standard drink = 0.6 oz pur e alcohol) Comments No Sex and Gender Information Value Date Recorded Sex Assigned at Not on file Legal Sex Female 10:12 AM CDT Gender Identity Not on file Sexual Orientation Not on file documented as of this encounter Plan of Treatment Upcoming Encounters Date Type Department Care Team (Late Contact Info) Description 10/08/2024 9:45 AM CDT Office Visit [facility] Oncology and Hematology - [place] [address] [place] [address] Salomón Coburn MD [address] [facility] [address] [place] [address] documented as of this encounter Visit Diagnoses Not on filedocumented in this encounter Care Teams Bid Analyst Relationship Specialty Start Date End Date Ernesto Hicks MD [address] [place] [address] PCP - General Family Practice 01/10/21 documented as of this encounter
--- OUTSIDE RECORDS SUMMARY | 2024-07-30 00:32 | XMS_ITS | Clinical Summary ---
Author Organization 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 Gender Identity Not on file Sexual Orientation Not on file Plan of Treatment Health Maintenance Due Date Last Done Comments Colorectal Cancer Screening Colonoscopy (10 Years) 1949 Hepatitis C 1967 DTaP, Tdap and Td Vaccines ( 1 - Tdap) 1968 Mammogram Screening 1989 Zoster Vaccines (1 of 2) 1999 Dexa Scan (General) 2014 Pneumococcal Vaccine: 65+ Ye ars (1 of 1 - PCV) 2014 COVID-19 Vaccine (2023-2 5 season) 2024 Influenza Adult (#1) 2024 RSV Immunization or 60+ Years (1 - 1-dose 75+ series) 2024 Meningococcal B Vaccine Aged Out No l onger eligible based on patient's age to complete this topic Meningococcal Vaccine Aged Out No nancy marimar eligible based on patient's age to complete this topic RSV Immunizations Under 20 Months Aged Out No longer eligible based on patient's age to complete this topic
--- OUTSIDE RECORDS SUMMARY | 2024-07-30 00:32 | XMS_ITS | Clinical Summary ---
Author Organization [facility] Address [address] [facility] [place] [address] Care Team Providers Care Branch Associate Teller Name Role Phone Ernesto Hicks MD Primary Care Provider [phone] Source Comments [facility],non-owned Affiliates and Associated Physician Practices is amultiple site organization consisting of ambulatory clinics and hospital sitesin [place] and [place]. This disclosure is being madepursuant to the Care Everywhere program and may not contain all information available regarding this patient. 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 Family History Medical History Relation Name Comments Alcohol abuse Brother Asthma Brother Bleeding Disorders Brother Cancer Father Arthritis - Rheumatoid Mother Diabetes Mother Hearing Loss Mother Lung Disease Mother Osteoporosis Mother Anemia Sister Arthritis - Rheumatoid Sister Relation Name Status Comments Brother Father Mother Sister Social History Tobacco Use Types Packs/Day Years Used Date Smoking Tobacco: Former Alcohol Use Standard Drinks/Week Comments Yes 0 (1 standard drink = 0.6 oz pur e alcohol) Sex and Gender Information Value Date Recorded Sex Assigned at Not on file Gender Identity Not on file Sexual Orientation Not on file Plan of Treatment Health Maintenance Due Date Last Done Comments BONE DENSITY TESTING 1950 COLOGUARD (AGES 45-75) - COL ON CA SCREENING 1949 COLON MONITORING 1949 COLONOSCOPY - COLON CA SCREENING 1949 CT COLONOGRAPHY - COLON CA SCREENING 1949 Colorectal Cancer Screening 1949 FIT - COLON CA SCREENING 1949 FLEX SIG - COLON CA SCREENING 1949 LIPID TESTING 1949 MAMMOGRAM 1949 MEDICARE AWV 12 MONTHS 1949 HEPATITIS C SCREENING 04/02/1967 DTAP/TDAP/TD VACCINES (1 - Tdap) 1968 PNEUMOCOCCAL VACCINE 50+ (1 of 1 - PCV) 1999 ZOSTER VACCINE (1 of 2) 1999 COVID-19 VACCINE ( - 2023-2 5 season) 2024 INFLUENZA VACCINE (#1) 2024 Respiratory Syncytial Virus (RSV) Vaccine Pt: or over 60 yrs (1 - 1-dose 75+ series) 2024 DEPRESSION SCREENING 05/12/2024 HEPATITIS B VACCINE Aged Out No longe r eligible based on patient's age to complete this topic HIB VACCINE Aged Out No longer eligi ble based on patient's age to complete this topic HPV VACCINE Aged Out No longer eligi ble based on patient's age to complete this topic MENINGOCOCCAL (Group B) VACC INE SHARED DECISION-MAKING Aged Out No longer eligibl e based on patient's age to complete this topic MENINGOCOCCAL GROUPS A/C/Y/W VACCINE Aged Out No longer eligible b ased on patient's age to complete this topic Care Teams Branch Associate Teller Relationship Specialty Start Date End Date Ernesto Hicks MD [address] [place] [address] PCP - General 12/26/11
--- OUTSIDE RECORDS SUMMARY | 2024-07-30 00:32 | XMS_ITS | Encounter Summary ---
Author Organization [facility] Address [address] [place] [address] Care Team Providers Care Teletypewriter Operator Name Role Phone Ernesto Hicks MD Primary Care Provider Encounter Details Date Type Department Care Team [...] Description 10/08/2024 9:45 AM CDT Office Visit [facility] Oncology and Hematology - [place] [address] [place] [address] Salomón Coburn MD [address] [facility] [address] [place] [address] documented as of this encounter Visit Diagnoses Not on filedocumented in this encounter Care Teams Teletypewriter Operator Relationship Specialty Start Date End Date Ernesto Hicks MD [address] [place] [address] PCP - General Family Practice 01/10/21 documented as of this encounter
--- OUTSIDE RECORDS SUMMARY | 2024-07-30 00:32 | XMS_ITS | Encounter Summary ---
Author Organization [facility] Address [address] [place] [address] Care Team Providers Care Audit Director Name Role Phone Ernesto Hicks MD Primary Care Provider Reason for Visit * Reason Onset Date Comments Abdominal Pain 04/29/2021 Spoke w/Jacquelyn López's exchange Encounter Details Date Type Department Care Team (Late st Contact Info) Description 04/29/2021 Telephone [facility] Admitting [address] [place] [address] [place], [address] [address] Abdominal Pain (Spoke w/Jacquelyn at Dr. López's exchange) Social History Tobacco Use Types Packs/Day Years Used Date Smoking Tobacco: Former Smokeless Tobacco: Never Alcohol Use Standard Drinks/Week Comments Not Currently 0 (1 standard drink = 0.6 oz pur e alcohol) Comments No Sex and Gender Information Value Date Recorded Sex Assigned at Not on file Legal Sex Female 10:12 AM CDT Gender Identity Not on file Sexual Orientation Not on file COVID-19 Exposure Response Date Recorded In the last month, have you been in contact with someone who was confirmed or suspected to have Coronavirus / COVID-19? 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 [address] PCP - General Family Practice 01/10/21 documented as of this encounter
--- OUTSIDE RECORDS SUMMARY | 2024-07-30 00:32 | XMS_ITS | Clinical Summary ---
Author Organization [facility] Address [address] [place] [phone] Care Team Providers Care Dump Motorman Name Role Phone Ernesto Hicks MD Primary Care Provider Allergies Active Allergy Reactions Criticality Noted Date Comments Codeine Stomach upset Low 07/09/2019 Cyclobenzaprine Nausea And Vomiting Low 01/31/2021 Gluten Unknown Low 07/09/2019 ciliac Medications cetirizine (ZyrTEC) 10 mg tabletIndications: Seasonal Allergic Rhinitis Take 1 tablet (10 mg total) by mouth as needed Active cycloSPORINE (RESTASIS) 0.05 % ophthalmic emulsionIndication s:dry eye Administer 1 drop into both eyes 2 (two) times a day Active pantoprazole DR (PROTONIX) 40 mg EC tabletIndications: Stress Ulcer Prophylaxis Take 1 tablet (40 mg total) by mouth every morning 4 Active cholecalciferol, vitamin D3, (VITAMIN D3 ORAL)Indications:s upplement Take 1 capsule by mouth every morning Active methylPREDNISolone (MEDROL DOSEPACK) 4 mg Dosepack Take as directed on package 1 packet 4 Active ondansetron ODT (ZOFRAN-ODT) 4 mg disintegrating tablet Take 1 tablet (4 mg total) by mouth every 8 (eight) hours as needed for nausea or vomiting 20 tablet 4 Active Active Problems Problem Noted Date Diagnosed Date Dizziness and giddiness 12/02/2011 Meniere's disease 12/02/2011 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 Sensorineural hearing loss (SNHL) of both ears (Primary Dx); Encounter for adjustment and management of cochlear device 07/08/2024 1:30 PM WIRELESS INTERNET INSTALLER Procedure visit [facility] Otolaryngology [address] [place] [address] [address] [place] [address] [place] [phone] Ekaterina Kaminski Au.D. Research subject (Primary Dx) from Last 3 Months Immunizations Immunization Administration Dates Next Due Influenza, Trivalent, High D ose, Split, Preservative Free, Intramuscular 02/25/2017 Pneumococcal Conjugate PCV 13 03/28/2015 Pneumococcal Polysaccharide PPV23 02/25/2017 ZOSTER LIVE 03/28/2015 Surgical History Surgery Date Site/Laterality Comments TONSILLECTOMY 05/12/1966 - 05/11/1967 Bilateral GALLBLADDER SURGERY 05/12/2020 - 05/11/2021 SHUNT EXTERNALIZATION 05/12/1996 - 05/11/1997 Right ESOPHAGOGASTRODUODENOSCOPY 05/12/2020 - 05/11/2021 DIAGNOSTIC LAPAROSCOPY 03/07/2021 SEGMENTAL DUODENAL RESECTION, GASTROJUEJUNAL ANASTOMOSIS CATARACT EXTRACTION W/ INTRA OCULAR LENS IMPLANT 05/12/2023 - 05/11/2024 Bilateral Medical History Medical History Date Comments Celiac disease 1998 Osteoporosis Autoimmune disease Dental disease Cancer (HCC) HL (hearing loss) Dizziness Tinnitus Osteoporosis Family History Medical History Relation Name Comments COPD Brother Cancer Brother Cancer Father Diabetes Mother Hearing loss Mother Cancer Sister Hypertension Sister Kidney disease Sister Migraines Sister Thyroid disease Sister Relation Name Status Comments Brother Father Mother Sister Social History Tobacco Use Types Packs/Day Years Used Date Smoking Tobacco: Former Cigarettes Q uit: 1994 Tobacco Cessation:Counseling Given: Not Answered Alcohol Use Standard Drinks/Week Comments Not Currently 0 (1 standard drink = 0.6 oz pur e alcohol) AUDIT-C Answer Date Recorded Q1: How often do you have a drink containing alc ohol? Monthly or less 12/16/2023 Q2: How many drinks containi ng alcohol do you have on a typical day when you are drinking? 1 or 2 12/16/2023 Q3: How often do you have si x or more drinks on one occasion? Never 12/16/2023 Personal Safety Answer Date Recorded Have you ever been in or are you currently in a harmful physical or emotional relationship or is someone making you feel afraid or unsafe? Denies 12/16/2023 Comments No Sex and Gender Information Value Date Recorded Sex Assigned at Not on file Legal Sex Female 6:02 PM WIRELESS INTERNET INSTALLER Gender Identity Female 03/20/2020 8:19 AM WIRELESS INTERNET INSTALLER Sexual Orientation Straight 03/20/2020 8: 19 AM WIRELESS INTERNET INSTALLER Obstetrics History Last Filed Vital Signs Vital Sign Reading Time Taken Comments Blood Pressure 122/77 12/16/2023 12:40 PM CDT Pulse 92 12/16/2023 12:40 PM CDT Temperature 36.4 C (97.5 F) 12/16/2023 12:00 PM CDT Respiratory Rate 26 12/16/2023 12:40 PM CDT Oxygen Saturation 97% 12/16/2023 12:40 PM CDT Inhaled Oxygen Concentration - - Weight 68 kg (150 lb) 12/05/2023 10:10 AM CDT Height 152.4 cm (5') 12/05/2023 10:10 AM CDT Body Mass Index 29.29 12/05/2023 10:10 AM CDT Plan of Treatment Health Maintenance Due Date Last Done Comments Colon Cancer Screening-Colonoscopy 1950 Depression Screening 1950 Hepatitis C Screening 1950 Osteoporosis Screening-Bone Density Scan 1949 DTaP/Tdap/Td Vaccine (1 - Tdap) 1960 Hepatitis B Screening 1967 Well Visit 65+ 2014 Zoster Vaccine (2 of 3) 05/23/2015 03/28/2015 Influenza Vaccine (#1) 2024 02/25/2017 Fall Risk Assessment 12/15/2024 12/16/2023 Pneumococcal vaccine 65+ Completed 02/25/2017, 03/12 Medical Devices Implanted Type Area Hydraulic Chair Assembler Device Identifier Shelf Expiration Date Model / Serial / Lot Cochlear Americas Implant Cochlear Cochlear Nucleus Profile Plus Slim Modiolar Electrode [id number] - [id number] - [id number] Implanted:Qty : 1 on 12/16/2023 by Tapan Mortensen MD at [facility] [place] Left: Cochlea Cochlear [employer] [id number] 11/13/2025 [id number] / [id number] / Insurance [facility] MEDICARE Care Teams Dump Motorman Relationship Specialty Start Date End Date Ernesto Hicks MD PCP - General Family Medicine 04/28/18
--- OUTSIDE RECORDS SUMMARY | 2024-07-30 00:32 | XMS_ITS ---
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 Past Treatment and Therapy Plans No past plan information found. Lifetime Dose Tracking * Chemical Lifetime Dose Automatic Entry Manual Entr y Effective Dose 39.23 mSv 39.23 mSv 0 mSv Total DLP 2,091.64 DLP 2,091.64 DLP 0 DLP CTDIvol Max 33.38 mGy 33.38 mGy 0 mGy CTDIvol Min 14.4 mGy 14.4 mGy 0 mGy Resolved Problems Problem Noted Date Diagnosed Date Resolved Date Wound infection after surgery 05/08/2021 02/05/2022 Acute superficial gastritis without hemorrhage 04/30/2021 02/05/2022 Protein-calorie malnutrition, moderate 03/13/2021 02/05/2022 Epigastric abdominal pain Marginal ulcer 02/05/2022
--- OUTSIDE RECORDS SUMMARY | 2024-07-30 00:32 | XMS_ITS | Referral Summary ---
Author Organization [facility] Address [address] [place] [phone] Care Team Providers Care Paper Feeder Name Role Phone Ernesto Hicks MD Primary Care Provider Encounters Date Type Department Care Team Description 07/14/[address] [facility] Otolaryngology [address] [place] [address] [address] [place] [address] [place] [address] Maria Elena Huston 07/08/2024 1:30 PM SCENIC ARTS SUPERVISOR Procedure visit [facility] Otolaryngology [address] [place] [address] [address] [place] [address] [place] [address] Ekaterina Kaminski Au.D. Research subject (Primary Dx) 07/08/2024 2:30 PM SCENIC ARTS SUPERVISOR Procedure visit [facility] Otolaryngology [address] [place] [address] [address] [place] [address] [place] [address] Maryjane Aguilar Au.D. 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 Immunizations Immunization Administration Dates Next Due Influenza, Trivalent, High D ose, Split, Preservative Free, Intramuscular 02/25/2017 Pneumococcal Conjugate PCV 13 03/28/2015 Pneumococcal Polysaccharide PPV23 02/25/2017 ZOSTER LIVE 03/28/2015 Social History Tobacco Use Types Packs/Day Years [...] on file Legal Sex Female 6:02 PM SCENIC ARTS SUPERVISOR Gender Identity Female 03/20/2020 8:19 AM SCENIC ARTS SUPERVISOR Sexual Orientation Straight 03/20/2020 8: 19 AM SCENIC ARTS SUPERVISOR Last Filed Vital Signs Vital Sign Reading [...] 12/05/2023 10:10 AM CDT Plan of Treatment Not on file Medical Devices Implanted Type Area Telephone Sterilizer Device Identifier Shelf Expiration Date Model / Serial / Lot Cochlear Americas Implant Cochlear Cochlear Nucleus Profile Plus Slim Modiolar Electrode [id number] - [id number] - [id number] Implanted:Qty : 1 on 12/16/2023 by Tapan Mortensen MD at [facility] Left: Cochlea Cochlear [employer] [id number] 11/13/2025 [id number] / [id number] / Insurance [employer] MEDICARE AETNA MEDICARE Care Teams Paper Feeder Relationship Specialty Start Date End Date Ernesto Hicks MD PCP - General Family Medicine 04/28/18
--- OUTSIDE RECORDS SUMMARY | 2024-07-30 00:32 | XMS_ITS | Clinical Summary ---
Author Organization [facility] Address [address] [place] [address] Care Team Providers Care Transcription Typist Name Role Phone Ernesto Hicks MD Primary Care Provider [phone] Allergies Active Allergy Reactions Criticality Noted Date Comments Codeine Abdominal Pain Low 01/10/2021 Stomach pain and cramps Cyclobenzaprine Nausea and Vomiting Low 01/31/2021 Gluten Unknown 07/09/2019 Medications cycloSPORINE (RESTASIS) 0.05 % emulsion Administer 1 Drop in both eyes 2 times daily. Active pantoprazole sodium (PANTOPRAZOLE ORAL) Take by mouth. 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 Resolved Problems Problem Noted Date Diagnosed Date Resolved Date Wound infection after surgery 05/08/2021 02/05/2022 Acute superficial gastritis without hemorrhage 04/30/2021 02/05/2022 Protein-calorie malnutrition, moderate 03/13/2021 02/05/2022 Epigastric abdominal pain Marginal ulcer 02/05/2022 Encounters Date Type Department Care Team Description 07/28/2024 External Device Data STL ABSTRACTION Provider, Abstract 07/28/2024 External Device Data STL ABSTRACTION Provider, Abstract 06/29/2024 External Device Data STL ABSTRACTION Provider, Abstract 06/02/2024 External Device Data STL ABSTRACTION Provider, Abstract 06/01/2024 External Device Data STL ABSTRACTION Provider, Abstract 05/25/2024 External Device Data STL ABSTRACTION Provider, Abstract from Last 3 Months Family History Medical History Relation Name Comments Cancer Brother 3 Cancer Brother 4 Cancer Father Diabetes Mother Heart Disease Mother Cancer Sister 1 Cancer Sister 2 Colon Cancer Neg Hx Esophageal Cancer Neg Hx Gastric Cancer Neg Hx Liver Cancer Neg Hx Pancreatic Cancer Neg Hx Relation Name Status Comments Brother 1 Brother 2 Alive Brother 3 Alive Brother 4 Alive Daughter Alive Father Mother Sister 1 Alive Sister 2 Alive Sister 3 Alive Sister 4 Alive Sister 5 Alive Son Alive Social History Tobacco Use Types Packs/Day Years Used Date Smoking Tobacco: Former Cigarettes 1 20 0 05/12/1974 - 05/12/1994 Smokeless Tobacco: Never Tobacco Cessation:Counseling Given: Not Answered Alcohol Use Standard Drinks/Week Comments Not Currently 0 (1 standard drink = 0.6 oz pur e alcohol) Comments No Sex and Gender Information Value Date Recorded Sex Assigned at Not on file Legal Sex Female 10:12 AM CDT Gender Identity Not on file Sexual Orientation Not on file Last Filed Vital Signs Vital Sign Reading Time Taken Comments Blood Pressure 124/85 04/02/2024 9:35 AM BRANCH OFFICER Pulse 76 04/02/2024 9:35 AM BRANCH OFFICER Temperature 36.6 C (97.8 F) 04/02/2024 9:35 AM BRANCH OFFICER Respiratory Rate 16 04/02/2024 9:35 AM BRANCH OFFICER Oxygen Saturation 96% 04/02/2024 9:35 AM BRANCH OFFICER Inhaled Oxygen Concentration - - Weight 68.9 kg (152 lb) 04/02/2024 9:35 AM BRANCH OFFICER Height 152.4 cm (5') 02/13/2023 1:31 PM CDT Body Mass Index 29.69 02/13/2023 1:31 PM CDT Plan of Treatment Upcoming Encounters Date Type Department Care Team (Late st Contact Info) Description 10/08/2024 9:45 AM CDT Office Visit [facility] Oncology and Hematology [facility] [address] [place] [address] Salomón Coburn MD [address] [facility] [address] [place] [address] Health Maintenance Due Date Last Done Comments DTAP/TDAP/TD VACCINES (1 - Tdap) 1968 FIT-DNA Q 3 years 1994 FIT/FOBT Q 1 year 1994 Flex Sig/CT Colonography Q 5 years 1994 ZOSTER VACCINE (2 of 3) 05/23/2015 03/28/2015 INFLUENZA VACCINE (#1) 2023 02/25/2017 RSV VACCINE (60+ or ) (1 - 1-dose 75+ series) 2024 COLORECTAL SCREENING 03/30/2030 03/30/2020 Colorectal Cancer Screening 03/30/2030 PNEUMOCOCCAL VACCINE 50+ YEARS Completed 02/25/2017 , 03/28/2015 OSTEOPOROSIS SCREENING Completed 03/29/2020 Medical Devices Implanted Type Area Staging Technician Device Identifier Shelf Expiration Date Model / Serial / Lot Clip Ligating Horizon Med Ti [id number] - Csc - [id number] Implanted:Qty : 1 on 03/07/2021 by Kyler Beverly MD at [facility] N/A: Abdomen TELEFLEX- WECK CLOSURE SYS 11/19/2025 [id number] / / [id number] Clip Ligating Horizon Ti [id number] - [id number] Implanted:Qty : 1 on 03/07/2021 by Kyler Beverly MD at [facility] N/A: Abdomen TELEFLEX- WECK CLOSURE SYS 10/30/2025 [id number] / / [id number] Sealant Fibrin Vistaseal 10ml Vst10 - [id number] Implanted:Qty : 1 on 03/07/2021 by Kyler Beverly MD at [facility] Sealant N/A: Abdomen J[employer]J- [employer] 02/12/2022 [id number] / [id number] / [id number] Insurance AETNA O [facility] AETNA PPO [facility] RX [facility] Medicare Part D RX [employer] PL[employer] (INTERNAL) [facility] Internal Plans Advance Directives For more information, please contact: [phone] * Full Code (Latest Code Status on File) Date Activated Date Inactivated Comments 04/29/2021 4:01 PM 05/03/2021 7:01 PM * Full Code Date Activated Date Inactivated Comments 03/07/2021 11:13 PM 03/14/2021 4:08 PM * Full Code Date Activated Date Inactivated Comments 03/07/2021 11:38 AM 03/07/2021 11:13 PM Care Teams Transcription Typist Relationship Specialty Start Date End Date Ernesto Hicks MD [address] [place] [address] PCP - General Family Practice 01/10/21
[2024-07-30 07:18] VITALS: BP 149/70; PULSE 74; RESP 18; TEMP 36.1; O2SAT 98; BMI 29.4
[2024-07-30] MEDS: LACTATED RINGERS 1,000 ML 150 ML IV CONT (07:37)
--- NOTE | 2024-07-30 08:25 | P.HP_ITS ---
History of Present Illness History of Present Illness Consent: Risks, benefits, and alternatives have been discussed and questions answered. Patient agrees to proceed with procedure. Chief complaint: Malignant neoplasm of the duodenum Narrative: Zohreh James is a 74 year old female here for egd, h/o celiac on gluten free diet doing quite well. She had duodenal adenoca removed in 2020, last CT scan no worrisome findings. Review of Systems Review of Systems: All systems reviewed & are unremarkable except as noted in HPI and below PMFSH Past Medical History Medical History Acute right hip pain Acute right-sided low back pain with left-sided sciatica Adenomatous colon polyp (~03/2020) Age-related osteoporosis without current pathological fracture BMI 23.0-23.9, adult BMI 25.0-25.9,adult BMI 28.0-28.9,adult Cataract Celiac disease Cyst of right kidney Duodenal ulcer Iron deficiency anemia Meniere's disease, bilateral Mixed hyperlipidemia Other spondylosis with radiculopathy, lumbar region Profound hearing loss of both ears Vitamin D deficiency, unspecified Surgical History Surgical History H/O cataract extraction History of colonoscopy with polypectomy (~03/2020) History of dilatation and curettage History of ear surgery shunt, right ear, 1997 [facility] History of tonsillectomy and adenoidectomy History of tubal ligation Hx laparoscopic cholecystectomy (06/05/20) Family History Family History Sibling Hypertension Diabetes mellitus Lymphoma COPD (chronic obstructive pulmonary disease) Mother , at 101 years old Diabetes mellitus Father , at age 57 Malignant neoplasm of prostate Social History Social History (Updated 04/12/24 @ 13:02 by Merari Roper MA) Smoking status: Never smoker Second hand tobacco smoke exposure: Yes Smoking end date: 11/08/94 Alcohol intake: current Substance use: never Substance use type: does not use Do You Feel Safe in your Home?: Yes Lack of Transportation: No Lack of Food: Never True Current Housing: I Have Housing Concerned About Future Housing: No Difficulty Paying Gas/Electric Bills: No Difficulty Paying for Meds: No Currently Unemployed: No Education: Master's Degree or Higher Difficulty w/ Childcare or Family Care: No Living arrangements: alone Additional living arrangements comments: She lives at home alone. She reports that she is happily . She has 1 soft and 1 daughter. Her son lives [place]. She is independent in activities of daily living. 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 (if verbalized by the patient): Female Spiritual care concerns: No Meds Home Medications and Allergies Home Medications ?Medication ?Instructions ?Recorded ?Confirmed ?Type cyclosporine 0.05 % eye drops in a 1 drp EACH EYE BID 12/13/20 07/30/24 History dropperette (Restasis) pantoprazole 40 mg tablet,delayed 40 mg PO DAILY #90 tabs 04/12/24 07/30/24 Rx release K2-D3 Max See Rx Instructions BYMOUTH DAILY 07/22/24 07/30/24 History Liposomal Heavy 1 cap BYMOUTH DAILY 07/22/24 07/30/24 History folic acid-vitamin B6-vitamin B12 tablet PO DAILY 07/22/24 History 2.3 mg-24.5 mg-2 mg tablet Allergies Allergy/AdvReac Type Severity Reaction Status Date / Time cyclobenzaprine Allergy Severe Other Verified 07/30/24 07:17 gluten Allergy Intermediate Gastrointestinal Verified 07/30/24 07:17 Upset codeine AdvReac Intermediate STOMACH Verified 07/30/24 07:17 PAIN/CRAMPING Vital Signs Vital Signs - 24 hr 07/30/24 07:18 Temperature 97 F L Pulse Rate 74 Respiratory Rate 18 Blood Pressure 149/70 H Pulse Oximetry 98 Oxygen Delivery Room Air Exam Const: General: comfortable and no acute distress HENMT: Face/Nose/Sinus: Normal nares present Eyes: General: appearance normal, both eyes and all related structures Neck: Neck: no JVD Resp: Auscultation: clear to auscultation bilaterally Cardio: Rate: regular rate Rhythm: regular rhythm GI: Inspection: non-distended GI Palp: Yes Soft to palpation Skin: General skin exam: normal color Neuro: Speech: normal speech Extrem: General: normal to inspection Psych: Mental Status: mental status grossly normal Assessment and Plan Assessment and plan (1) Celiac disease: Code(s): K90.0 - Celiac disease Status: Acute Assessment and Plan: doing well on diet egd with bx (2) 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
--- NOTE | 2024-07-30 08:27 | WPDANESEPPF ---
Anes - Initial Pre Proc Eval Procedure: Operation Date: 07/30/24 08:30 Proposed Procedures p Esophagogastroduodenoscopy - Romeo Alcantara MD Date/Time: 07/30/24 08:27 Surgeon: Romeo Alcantara MD Pre Op Diagnosis: Malignant neoplasm of the duodenum Patient Data Age: 74 Gender: F Height: 1.52 m Weight: 68.4 kg Last Vital Signs Temp 36.1 C L 07/30/24 07:18 Pulse 74 07/30/24 07:18 Resp 18 07/30/24 07:18 BP 149/70 H 07/30/24 07:18 Pulse Ox 98 07/30/24 07:18 O2 Del Method Room Air 07/30/24 07:18 Allergies Allergy/AdvReac Type Severity Reaction Status Date / Time cyclobenzaprine Allergy Severe Other Verified 07/30/24 07:17 gluten Allergy Intermediate Gastrointestinal Verified 07/30/24 07:17 Upset codeine AdvReac Intermediate STOMACH Verified 07/30/24 07:17 PAIN/CRAMPING Home Medications ?Medication ?Instructions ?Recorded ?Confirmed ?Type cyclosporine 0.05 % eye drops in a 1 drp EACH EYE BID 12/13/20 07/30/24 History dropperette (Restasis) pantoprazole 40 mg tablet,delayed 40 mg PO DAILY #90 tabs 04/12/24 07/30/24 Rx release K2-D3 Max See Rx Instructions BYMOUTH DAILY 07/22/24 07/30/24 History Liposomal Heavy 1 cap BYMOUTH DAILY 07/22/24 07/30/24 History folic acid-vitamin B6-vitamin B12 tablet PO DAILY 07/22/24 History 2.3 mg-24.5 mg-2 mg tablet Patient hx anesthesia problems: none Family hx anesthesia problems: none Results Review: All pre-operative results and documents have been reviewed as part of the pre-operative evaluation. [facility] Past Medical History Medical History BMI 28.0-28.9,adult BMI 23.0-23.9, adult Cataract Duodenal ulcer Profound hearing loss of both ears Adenomatous colon polyp (~03/2020) Acute right hip pain Acute right-sided low back pain with left-sided sciatica Age-related osteoporosis without current pathological fracture Cyst of right kidney Mixed hyperlipidemia Meniere's disease, bilateral Other spondylosis with radiculopathy, lumbar region Vitamin D deficiency, unspecified BMI 25.0-25.9,adult Celiac disease Iron deficiency anemia Surgical History Surgical History H/O cataract extraction History of dilatation and curettage History of tubal ligation History of tonsillectomy and adenoidectomy History of colonoscopy with polypectomy (~03/2020) Hx laparoscopic cholecystectomy (06/05/20) History of ear surgery shunt, right ear, 1997 [facility] Family History Family History Sibling Hypertension Diabetes mellitus Lymphoma COPD (chronic obstructive pulmonary disease) Mother , at 101 years old Diabetes mellitus Father , at age 57 Malignant neoplasm of prostate Social History Social History Smoking status: Never smoker Second hand tobacco smoke exposure: Yes Smoking end date: 11/08/94 Alcohol intake: current Substance use: never Substance use type: does not use Do You Feel Safe in your Home?: Yes Lack of Transportation: No Lack of Food: Never True Current Housing: I Have Housing Concerned About Future Housing: No Difficulty Paying Gas/Electric Bills: No Difficulty Paying for Meds: No Currently Unemployed: No Education: Master's Degree or Higher Difficulty w/ Childcare or Family Care: No Living arrangements: alone Additional living arrangements comments: She lives at home alone. She reports that she is happily . She has 1 soft and 1 daughter. Her son lives locally. She is independent in activities of daily living. 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 Informed Consent: The patient's anesthetic plan and its attendant risks and benefits were discussed with the patient/family/POA. Questions were solicited and answers provided to the satisfaction of the patient/family/POA.
[2024-07-30 08:41] VITALS: BP 102/45; PULSE 71; RESP 20; O2SAT 95
[2024-07-30 08:51] VITALS: BP 100/47; PULSE 68; RESP 20; O2SAT 95
[2024-07-30 09:01] VITALS: BP 122/62; PULSE 73; RESP 20; O2SAT 95
== END 2024-07-30 09:14 | disposition home or self-care (01) ==
PROVIDERS: PCP Family Medicine; Referring Provider Family Medicine; Visit Provider Internal Medicine Gastroenterology
PROC: 0DJ08ZZ Inspection of Upper Intestinal Tract, Via Natural or Artificial Opening Endoscopic (ICD-10-PCS; CPT 43239; principal; 2024-07-30 08:30)
DX: K90.0 Celiac disease (principal); Z85.068 Personal history of other malignant neoplasm of small intestine; Z98.0 Intestinal bypass and anastomosis status; Z90.49 Acquired absence of other specified parts of digestive tract
CPT/HCPCS: 43239; 88305; J2003; J2704; J7120

== ENCOUNTER 2024-10-05 08:03 | Outpatient (CLI) | payer MEDICARE, SELFPAY ==
--- OUTSIDE RECORDS SUMMARY | 2024-10-05 08:06 | XMS_ITS ---
Author Organization [facility] Address [address] [facility] [place] [address] Care Team Providers Care Adult Live In Caregiver Name Role Phone Ernesto Hicks MD Primary [...]
--- OUTSIDE RECORDS SUMMARY | 2024-10-05 08:06 | XMS_ITS | Continuity of Care Document ---
Author Organization [facility] Address [address] [place] [address] [place] [address] Phone Care Team Providers Care Tank Wagon Driver Name Role Phone De Guzman OD, Pa Unavailable Unavailable Procedures Procedure Date Office/outpatient Visit, Est Office/outpatient Visit, Est Eye Exam Established Pt Office Consultation Ophthalmoscopy Optic Nerve Topography Office/outpatient Visit, Est Advance Directives Directive Yes / No Effective Date File Name No Information Encounters Encounter Description Practice Location Reason(s) For Visit Diagnoses Date Provider Providers Copied on Encounter Office/outpati ent Visit, Est [facility], [address] [place] [address] [address], [place], [place], [id number], [place] tel:[phone] [facility] No Information Aug-2 7-201 0 De Guzman OD Pa. [address], [place], [place], [facility], [place]. tel:[phone] Office/outpati ent Visit, Est [facility], [address], [place], [place], [id number], [place] tel:[phone] [facility] No Information Aug-2 2-201 0 De Guzman OD Pa. [address] , [address], [place], [address], [place]. tel:[phone] [facility], [address], [place], [place], [id number], [place] tel:[phone] [facility] No Information 2 0-200 9 Ofelia [address]ba. [address] [place], [address], [place]. tel:[phone] Office Consultation [facility] Eye [facility], [address] [place] [address] [address], [place], [place], [address], [place] tel:[phone] [facility] No Information Oct-2 2-200 9 Ofelia [address]ba[address] [place], [address], [place]. tel:[phone] Referring Provider: Eliu Nicholas, [address], [place], [place], [facility]. tel:[phone] Office/outpati ent Visit, [facility] [address], [place], [place], [id number], [place] tel:[phone] [facility] No Information 2-200 9 [address]. [facility] [facility] [address] , [address], [place], [address], [place]. tel:[phone] Family History Family Member Type Diagnosis Age [...]
--- OUTSIDE RECORDS SUMMARY | 2024-10-05 08:06 | XMS_ITS | Clinical Summary ---
Author Organization [facility] Address [address] [place] [address] Care Team Providers Care Fermentation Manager Name Role Phone Ernesto Hicks MD Primary Care Provider [phone] Allergies Active Allergy Reactions Criticality Noted Date [...] Encounters Date Type Department Care Team Description 08/10/2024 External Device Data STL ABSTRACTION Provider, Abstract [...] Comments Blood Pressure 124/85 04/02/2024 9:35 AM SALESPERSON [facility] [facility] Pulse 76 04/02/2024 9:35 AM [employer] [employer] Temperature 36.6 C (97.8 F) 04/02/2024 9:35 AM [facility] Respiratory Rate 16 04/02/2024 9:35 AM [facility] Oxygen Saturation 96% 04/02/2024 9:35 AM [employer] [facility] Inhaled Oxygen Concentration - - Weight 68.9 kg (152 lb) 04/02/2024 9:35 AM [employer] [employer] Height 152.4 cm (5') 02/13/2023 1:31 PM CDT Body Mass Index 29.69 02/13/2023 1:31 PM CDT Plan of Treatment Upcoming Encounters Date Type Department Care Team (Late st Contact Info) Description 10/08/2024 9:45 AM CDT Office Visit [facility] Oncology and Hematology - [place] [address] [place] [address] Salomón Coburn MD [address] [facility] [address] [place] [address] Health Maintenance Due Date Last Done Comments DTAP/TDAP/TD VACCINES (1 - Tdap) 1968 FIT-DNA Q 3 years 1994 FIT/FOBT Q 1 year 1994 Flex Sig/CT Colonography Q 5 years 1994 ZOSTER VACCINE (2 of 3) 05/23/2015 03/28/2015 INFLUENZA VACCINE (#1) 2023 02/25/2017 RSV VACCINE (60+ or ) (1 - 1-dose 75+ series) 2024 [place] Prev entative Visit/Annual Wellness Visit 05/12/2024 OSTEOPOROSIS SCREENING 03/29/2025 03/29/2020 COLORECTAL SCREENING 03/30/2030 03/30/2020 Colorectal Cancer Screening 03/30/2030 PNEUMOCOCCAL VACCINE 50+ YEARS Completed 02/25/2017 , 03/28/2015 Medical Devices Implanted Type Area Cistern Room Working Supervisor Device Identifier Shelf Expiration Date Model / Serial / Lot Clip Ligating Horizon Med [id number] - [facility] - [id number] Implanted:Qty : 1 on 03/07/2021 by Kyler Beverly MD at [facility] N/A: Abdomen TELEFLEX- WECK CLOSURE SYS 11/19/2025 [id number] / / [id number] Clip Ligating Horizon Ti [id number] Rp - [id number] Implanted:Qty : 1 on 03/07/2021 by Kyler Beverly MD at [facility] N/A: Abdomen TELEFLEX- WECK CLOSURE SYS 10/30/2025 [id number] / / [id number] Sealant Fibrin Vistaseal 10ml Vst10 - [id number] Implanted:Qty : 1 on 03/07/2021 by Kyler Beverly MD at [facility] Sealant N/A: Abdomen J[employer]J- [employer] 02/12/2022 [id number] / [id number] / [id number] [facility] AETNA PPO [facility] RX [facility] Medicare Part D RX [employer] PL[employer] (INTERNAL) [facility] Internal Plans Advance Directives For more information, please contact: [phone] * Full Code (Latest Code Status on File) Date Activated Date Inactivated Comments 04/29/2021 4:01 PM 05/03/2021 7:01 PM * Full Code Date Activated Date Inactivated Comments 03/07/2021 11:13 PM 03/14/2021 4:08 PM * Full Code Date Activated Date Inactivated Comments 03/07/2021 11:38 AM 03/07/2021 11:13 PM Care Teams Fermentation Manager Relationship Specialty Start Date End Date Ernesto Hicks MD [address] [place] [address] PCP - General Family Practice 01/10/21
--- OUTSIDE RECORDS SUMMARY | 2024-10-05 08:07 | XMS_ITS | Encounter Summary ---
Author Organization [facility] Address [address] [place] [address] Care Team Providers Care Parakeet Raiser Name Role Phone Ernesto Hicks MD Primary Care Provider Reason for Visit * Reason Onset Date Comments Abdominal Pain 04/29/2021 Spoke w/Jacquelyn López's exchange Encounter Details Date Type Department Care Team (Late st Contact Info) Description 04/29/2021 Telephone [facility] Admitting [address] [place] [address] [place], [address] [address] Abdominal Pain (Spoke w/Jacquelyn at [...] COVID-19? No / Unsure 04/29/2021 1:14 PM PARACHUTIST/COMBATANT DIVER QUALIFIED documented as of this encounter Plan of Treatment Upcoming Encounters Date Type Department Care Team (Late st Contact Info) Description 10/08/2024 9:45 AM CDT Office Visit [facility] Oncology and Hematology - [place] [address] [place] [address] Salomón Coburn MD [address] [facility] [address] [place] [address] documented as of this encounter Visit Diagnoses Not on filedocumented in this encounter Care Teams Parakeet Raiser Relationship Specialty Start Date End Date Ernesto Hicks MD [address] [place] [address] PCP - General Family Practice 01/10/21 documented as of this encounter
--- OUTSIDE RECORDS SUMMARY | 2024-10-05 08:07 | XMS_ITS | Clinical Summary ---
Author Organization [facility] Address [address] [place] [address] Care Team Providers Care Wet Primer Powder Blender Name Role Phone Ernesto Hicks MD Primary Care Provider [phone] Allergies Active Allergy Reactions Criticality Noted Date [...] Type Department Care Team Description 07/14/2024 Telephone [facility] Otolaryngology [address] [place] [address] [address] [place] [address] [place] [address] Maria Elena Huston 07/08/2024 2:30 PM ACCOUNTING BOOKKEEPER Procedure visit [facility] Otolaryngology [address] [place] [address] 11th [place] [address] [place] [address] Maryjane Aguilar Au.D. Sensorineural hearing loss (SNHL) of both ears (Primary Dx); Encounter for adjustment and management of cochlear device 07/08/2024 1:30 PM ACCOUNTING BOOKKEEPER Procedure visit [facility] Otolaryngology [address] [place] [address] [address] [place] [address] Ekaterina Kaminski Au.D. Research subject (Primary Dx) [...] on file Legal Sex Female 6:02 PM ACCOUNTING BOOKKEEPER Gender Identity Female 03/20/2020 8:19 AM ACCOUNTING BOOKKEEPER Sexual Orientation Straight 03/20/2020 8: 19 AM ACCOUNTING BOOKKEEPER Obstetrics History Last Filed Vital Signs Vital [...] Zoster Vaccine (2 of 3) 05/23/2015 03/28/2015 Fall Risk Assessment 12/15/2024 12/16/2023 Influenza Vaccine (Season Ended) 2025 02/26/20 17 Pneumococcal vaccine 65+ Completed 02/25/2017, 03/12 Medical Devices Implanted Type Area Photovoltaic Installer Device Identifier Shelf Expiration Date Model / Serial / Lot Cochlear [employer] Implant Cochlear Cochlear Nucleus Profile Plus Slim Modiolar Electrode [id number] - [id number] - [id number] Implanted:Qty : 1 on 12/16/2023 by Tapan Mortensen MD at [facility] [place] Left: Cochlea Cochlear [employer] [id number] 11/13/2025 [id number] / [id number] / Insurance [facility] MEDICARE MEDICARE Care Teams Wet Primer Powder Blender Relationship Specialty Start Date End Date Ernesto Hicks MD PCP - General Family Medicine 04/28/18
--- OUTSIDE RECORDS SUMMARY | 2024-10-05 08:07 | XMS_ITS | Clinical Summary ---
Author Organization [facility] Address [address] [facility] [place] [address] Care Team Providers Care Assorter Laundry Name Role Phone Ernesto Hicks MD Primary Care Provider [phone] Source Comments [facility],non-owned Affiliates and Associated Physician Practices is amultiple site organization consisting of ambulatory clinics and hospital sitesin [place], [place], [place] and [place]. This disclosure is being madepursuant to the Care Everywhere program and may not contain all information available regarding this patient. Last updated 18.[facility] Allergies Active Allergy Reactions Criticality Noted Date [...] = 0.6 oz pur e alcohol) Comments Unknown Sex and Gender Information Value Date Recorded Sex Assigned at Not on file Legal Sex Female 6:42 PM MECHANICAL ENGINEER Gender Identity Not on file Sexual Orientation [...] SCREENING 1950 LIPID TESTING 1950 MAMMOGRAM 1950 HEPATITIS C SCREENING 04/02/1967 DTAP/TDAP/TD VACCINES (1 - Tdap) 1968 PNEUMOCOCCAL VACCINE 50+ (1 of 1 - PCV) 1999 ZOSTER VACCINE (1 of 2) 1999 COVID-19 VACCINE (2023-2 5 season) 2024 Respiratory Syncytial Virus (RSV) Vaccine Pt: or over 60 yrs (1 - 1-dose 75+ series) 2024 DEPRESSION SCREENING 05/12/2024 MEDICARE AWV CALENDAR YEAR 2024 INFLUENZA VACCINE (Season Ended) 2025 HEPATITIS B VACCINE Aged Out No longe [...] on patient's age to complete this topic Insurance MEDICARE AETNA MEDICARE ADV SELF PAY NO INSURANCE Member Subscriber Plan / Payer (Ef fective for All Dates) Name:Zohreh Miller I Member ID:Not on file Relation to Subscriber:Not on file Name:ZOHREH MILLER I Subscriber ID:Not on file (Home) Address: [address] [place] [address] Payer ID:Not on file Group ID:Not on file Type:Self Pay Address: [place], [place] Care Teams Assorter Laundry Relationship Specialty Start Date End Date Ernesto Hicks MD [address] [place] [address] PCP - General 12/26/11
--- OUTSIDE RECORDS SUMMARY | 2024-10-05 08:07 | XMS_ITS | Referral Summary ---
Author Organization [facility] Address [address] [place] [address] Care Team Providers Care Carbon Brush Maker Name Role Phone Ernesto Hicks MD Primary Care Provider [phone] Encounters Date Type Department Care Team Description 07/14/[address] [facility] Otolaryngology [address] [place] [address] [address] [place] [address] [place] [address] Maria Elena Huston 07/08/2024 1:30 PM GRAPPLER Procedure visit [facility] Otolaryngology [address] [place] [address] [address] [place] [address] [place] [address] Ekaterina Kaminski Au.D. Research subject (Primary Dx) 07/08/2024 2:30 PM GRAPPLER Procedure visit [facility] Otolaryngology [address] [place] [address] [address] [place] [address] [place] [address] Maryjane Aguilar Au.D. Sensorineural hearing [...] on file Legal Sex Female 6:02 PM GRAPPLER Gender Identity Female 03/20/2020 8:19 AM GRAPPLER Sexual Orientation Straight 03/20/2020 8: 19 AM GRAPPLER Last Filed Vital Signs Vital Sign Reading [...] on file Medical Devices Implanted Type Area Adolescent Counselor Device Identifier Shelf Expiration Date Model / Serial / Lot Cochlear [employer] Implant Cochlear Cochlear Nucleus Profile Plus Slim Modiolar Electrode [id number] - [id number] - [id number] Implanted:Qty : 1 on 12/16/2023 by Tapan Mortensen MD at [facility] Left: Cochlea Cochlear [employer] [id number] 11/13/2025 [id number] / [id number] / Insurance [employer] MEDICARE AETNA MEDICARE Care Teams Carbon Brush Maker Relationship Specialty Start Date End Date Ernesto Hicks MD PCP - General Family Medicine 04/28/18
[2024-10-05 08:36] LABS: Basophils Percent Auto 0.5 % (0.2-1.2); Eosinophils Absolute Auto 0.1 K/mm3 (0-0.3); Eosinophils Percent Auto 2.8 % (0-4.4); Hematocrit 37.5 % (37.0-47.0); Hemoglobin 12.6 g/dL (12.0-15.0); Immature Granulocyte Absolute 0.01 K/mm3 (0.00-0.031); Immature Granulocyte Percent A 0.2 % (0-0.5); Lymphocytes Percent Auto 30.2 % (18.3-44.2); Mean Corpuscular HGB Conc 33.6 g/dl (32-36); Mean Corpuscular Hemoglobin 30.4 pg (26-34); Mean Corpuscular Volume 90.6 fl (80-100); Mean Platelet Volume 8.9 fl (7.4-10.4); Monocytes Absolute Auto 0.5 K/mm3 (0.1-0.6); Monocytes Percent Auto 11.8 % (2.6-8.5); Neutrophils Absolute Auto 2.4 K/mm3 (1.3-6.7); Neutrophils Percent Auto 54.5 % (45.5-73.1); Platelet Count Result 290 k/mm3 (150-375); Red Blood Count 4.14 M/mm3 (4.2-5.4); Red Cell Distribution Width 12.5 % (11.5-14.5); White Blood Count 4.3 K/mm3 (4.5-10.0)
[2024-10-05 11:03] LABS: Alanine Aminotransferase 18 U/L (6-35); Alkaline Phosphatase 81 U/L (38-126); Anion Gap 5 mmol/L (4-12); Aspartate Amino Transferase 39 U/L (14-36); Bilirubin,Total 0.5 mg/dL (0.2-1.3); Blood Urea Nitrogen 9 mg/dL (7-17); Calcium 8.8 mg/dL (8.4-10.2); Carbon Dioxide 27 mmol/L (22-30); Chloride 107 mmol/L (98-107); Estimated Glomerular Filt Rate > 60; Glucose 105 mg/dL (65-110); Potassium 3.9 mmol/L (3.4-5.0); Sodium 139 mmol/L (137-145)
[2024-10-05 11:34] LABS: Carcinoembryonic Antigen 0.6 ng/mL (0.0-3.0)
== END 2024-10-05 08:04 | disposition home or self-care (01) ==
LOC: ANHLAB 08:04
PROVIDERS: PCP Family Medicine; Visit Provider Internal Medicine Hematology & Oncology
DX: C17.0 Malignant neoplasm of duodenum (principal)
CPT/HCPCS: 36415; 80053; 82378; 85025

== ENCOUNTER 2025-04-06 08:47 | Outpatient (CLI) | payer MEDICARE, SELFPAY ==
[2025-04-06 08:58] LABS: Hematocrit 39.8 % (37.0-47.0); Hemoglobin 13.1 g/dL (12.0-15.0); Immature Granulocyte Percent A 0.2 % (0-0.5); Lymphocytes Absolute Auto 1.57 K/mm3 (0.9-3.2); Mean Corpuscular HGB Conc 32.9 g/dl (32-36); Mean Corpuscular Hemoglobin 30.1 pg (26-34); Mean Corpuscular Volume 91.5 fl (80-100); Nucleated Red Blood Cells Absolute Auto 0.000 K/mm3 (0.0-0.012); Nucleated Red Blood Cells Perc 0.0 % (0.0-0.2); Platelet Count Result 317 k/mm3 (150-375); Red Blood Count 4.35 M/mm3 (4.2-5.4); White Blood Count 5.3 K/mm3 (4.5-10.0)
[2025-04-06 10:04] LABS: Alanine Aminotransferase 18 U/L (6-35); Albumin Level 4.4 g/dL (3.5-5.1); Alkaline Phosphatase 92 U/L (38-126); Anion Gap 6 mmol/L (4-12); Aspartate Amino Transferase 26 U/L (14-36); Bilirubin,Total 0.6 mg/dL (0.2-1.3); Blood Urea Nitrogen 11 mg/dL (7-17); Calcium 9.5 mg/dL (8.4-10.2); Carbon Dioxide 28 mmol/L (22-30); Chloride 105 mmol/L (98-107); Estimated Glomerular Filt Rate > 60; Glucose 101 mg/dL (65-110); Potassium 4.3 mmol/L (3.4-5.0); Sodium 139 mmol/L (137-145); Total Protein 7.6 g/dL (6.3-8.2)
[2025-04-08 12:46] LABS: Carcinoembryonic Antigen 0.6 ng/mL (0.0-3.0)
== END 2025-04-06 08:48 | disposition home or self-care (01) ==
LOC: ANHLAB 08:48
PROVIDERS: PCP Family Medicine; Visit Provider Internal Medicine Hematology & Oncology
DX: C17.0 Malignant neoplasm of duodenum (principal)
CPT/HCPCS: 36415; 80053; 82378; 85025